=== PATIENT | female | born 1965 | race Caucasian/White ===

== ENCOUNTER 2018-02-08 12:40 | Emergency (ER) | payer OTHER ==
[~2018-02-08] VITALS: Ht 172.7 cm; Wt 151.5 kg
[~2018-02-08 12:40] MED LIST: AMLO5 PO; AMOX500 PO; ASPI81CH PO; Advil200 M1 PO; CALCAVITD PO; CARV6.25 PO; CEPH500 PO; CHOL10002 PO; CIPR500 PO; CONEST.3 PO; CONEST.625 PO; CRUTCH3 USE; CYCL10 PO; Cipro500 MG PO; DOCU100 PO; FURO20 PO; Flagyl500 MG PO; HYDACE5; HYDACE5 PO; HYDACE7.5 PO; HYDR1TAB94 PO; HYOS.125 SL; IBUP600 PO; LISI20; LISI20 PO; LISI5 PO; LISINOPRIL PO; METCAR500 PO; METR500 PO; Miralax17 GM PO; NAPR500 PO; NAPR550 PO; NO HOME MEDS; Norco 5-325 Ta1 EACH PO; ONDA4 PO; ONDA8 PO; OXYACE5T PO; PAIN MED; PENVK500 PO; PROACE100 PO; PROC10 PO; PROM25 PO; Prilosec20 MG PO; RXCYCL10 PO; RXHYDACE PO; RXNAPNA550 PO; TRAM50 PO; VIIBRYD20 MG PO; VITAMIN D PO; ZESTORETIC 20-121 E1 PO; ZESTORETIC 20-121 EA; ZESTORETIC 20-121 EA PO; ZESTORETIC 20-251 EA; Zestril30 MG PO; [UNRECOGNIZED DRUG - REMARK]; water pill
[2018-02-08 13:40] LABS: BASOPHILS ABSOLUTE AUTO 0.02 K/mm3 (0.00-0.23); BASOPHILS PERCENT AUTO 0 % (0-2); EOSINOPHILS ABSOLUTE AUTO 0.23 K/mm3 (0.00-0.68); EOSINOPHILS PERCENT AUTO 2 % (0-6); Hematocrit 41.3 % (33.0-51.0); Hemoglobin 13.5 g/dL (11.5-16.0); IMMATURE GRAN ABSOLUTE AUTO 0.04 K/mm3 (0.00-0.10); IMMATURE GRAN PERCENT AUTO 0 % (0-1); LYMPHOCYTES ABSOLUTE AUTO 2.38 K/mm3 (0.84-5.20); LYMPHOCYTES PERCENT AUTO 18 % (21-46); MONOCYTES ABSOLUTE AUTO 0.74 K/mm3 (0.16-1.47); MONOCYTES PERCENT AUTO 6 % (4-13); Mean Corpuscular HGB 28.8 pg (26.0-34.0); Mean Corpuscular HGB Conc 32.7 g/dL (31.5-36.5); Mean Corpuscular Volume 88 fL (80-100); Mean Platelet Volume 10.2 fL (9.1-12.4); NEUTROPHILS PERCENT AUTO 74 % (41-73); Platelet Count 251 K/mm3 (150-400); RDW Coefficient Variation 13.6 % (11.7-14.2); Red Blood Cell Count 4.68 M/mm3 (3.80-5.20); White Blood Cell Count 13.31 K/mm3 (4.00-11.30)
[2018-02-08 14:01] LABS: Albumin, Blood 3.5 g/dL (3.4-5.0); Albumin/Globulin Ratio 0.7 (0.8-1.8); Bilirubin, Total 0.4 mg/dL (0.1-1.0); Calcium, Blood 8.9 mg/dL (8.5-10.1); Creatinine, Blood 1.23 mg/dL (0.40-1.00); Potassium, Blood 3.6 mmol/L (3.5-5.5); Total Protein, Blood 8.5 g/dL (6.4-8.2)
[2018-02-08 14:28] LABS: Source, Urine Voided
[2018-02-08 14:31] LABS: Appearance, Urine Clear (Clear); Bilirubin, Urine Neg (Neg); Blood, Urine 1+ (Neg); Color, Urine Yellow (P-Yellow); Glucose Qualitative, Urine Neg (Neg); Ketones, Urine Neg (Neg); Leukocyte Esterase, Urine Neg (Neg); Nitrite, Urine Neg (Neg); Protein, Urine Neg (Neg); Specific Gravity, Urine 1.015 (1.003-1.022); Urobilinogen, Urine NORM (Normal)
[2018-02-08] MEDS ORDERED: IRON 100 PLUS1 EACH PO (14:44)
[2018-02-08] MEDS ORDERED: Vitamin C100 M1 PO (14:44)
[2018-02-08] MEDS ORDERED: CALCA400CH PO (14:45)
[2018-02-08 14:56] LABS: Bacteria Few /hpf; Red Blood Cells, Urine Not Seen /hpf (0-2); Squamous Epithelial Cells Few /hpf (Few); White Blood Cells, Urine Not Seen /hpf (0-5)
[2018-02-08] MEDS ORDERED: Cipro500 MG PO (16:30)
[2018-02-08] MEDS ORDERED: Flagyl500 MG PO (16:30)
== END 2018-02-08 17:01 | disposition home or self-care (01) ==
LOC: ER 12:40
PROVIDERS: Emergency Medicine
DX: K57.32 Diverticulitis of large intestine without perforation or abscess without bleeding (principal); I10 Essential (primary) hypertension; Z79.899 Other long term (current) drug therapy; Z79.82 Long term (current) use of aspirin
CPT/HCPCS: 36415; 74176; 80053; 81001; 83690; 85025; 87077; 87086; 87186; 93005; 93010; 96361; 96374; 96375; 99284; J1885; J3010; J7030

== ENCOUNTER → 2020-05-16 | Outpatient (CLI) | payer OTHER ==
[~2020-05-16] MED LIST changes: +CALCA400CH PO; +CALCIUM PO; +FURO40 PO; +IRON 100 PLUS1 EACH PO; +IRON PO; +POTA10T PO; +SALONPAS TOP; +VIBRYD PO; +Vitamin C100 M1 PO; +Vitamin D2000 UNIT PO; +Voltaren100 GM TOP
[2020-05-16 18:31] LABS: Creatinine Urine 77.6 mg/dL (27.00-270.00); Protein, Urine Quantitative 7.2 mg/dL (0.0-11.9)
[2020-05-16 18:34] LABS: Microalbumin, Urine Quant. 5.99 mg/L (0.000-20.000)
== END | disposition home or self-care (01) ==
LOC: LAB 10:30 → LAB SHORT 10:30 → EDSTATUS 05-15 08:45 → LAB FUT 05-15 08:45
PROVIDERS: Internal Medicine Nephrology
DX: N18.3 Chronic kidney disease, stage 3 (moderate) (principal); D63.1 Anemia in chronic kidney disease; R80.9 Proteinuria, unspecified
CPT/HCPCS: 81050; 82043; 82570; 84156

== ENCOUNTER 2020-05-20 19:20 | Emergency (ER) | payer OTHER ==
[~2020-05-20] VITALS: Ht 172.7 cm; Wt 142.4 kg
[2020-05-20] MEDS ORDERED: XARELTO20 MG PO (23:09)
[2020-05-20 23:13] LABS: BASOPHILS ABSOLUTE AUTO 0.02 K/mm3 (0.00-0.23); BASOPHILS PERCENT AUTO 0 % (0-2); EOSINOPHILS ABSOLUTE AUTO 0.33 K/mm3 (0.00-0.68); EOSINOPHILS PERCENT AUTO 3 % (0-6); Hematocrit 40.7 % (33.0-51.0); Hemoglobin 12.7 g/dL (11.5-16.0); IMMATURE GRAN ABSOLUTE AUTO 0.02 K/mm3 (0.00-0.10); IMMATURE GRAN PERCENT AUTO 0 % (0-1); LYMPHOCYTES ABSOLUTE AUTO 2.93 K/mm3 (0.84-5.20); LYMPHOCYTES PERCENT AUTO 28 % (21-46); MONOCYTES ABSOLUTE AUTO 0.65 K/mm3 (0.16-1.47); MONOCYTES PERCENT AUTO 6 % (4-13); Mean Corpuscular HGB 28.7 pg (26.0-34.0); Mean Corpuscular HGB Conc 31.2 g/dL (31.5-36.5); Mean Corpuscular Volume 92 fL (80-100); Mean Platelet Volume 10.5 fL (9.1-12.4); NEUTROPHILS ABSOLUTE AUTO 6.38 K/mm3 (1.96-9.15); NEUTROPHILS PERCENT AUTO 62 % (41-73); Platelet Count 237 K/mm3 (150-400); RDW Coefficient Variation 14.4 % (11.7-14.2); RDW Standard Deviation 48.8 fL (35.1-46.3); Red Blood Cell Count 4.43 M/mm3 (3.80-5.20); White Blood Cell Count 10.33 K/mm3 (4.00-11.30)
[2020-05-20 23:30] LABS: Albumin, Blood 3.7 g/dL (3.4-5.0); Albumin/Globulin Ratio 0.8 (0.8-1.8); Bilirubin, Total 0.2 mg/dL (0.1-1.0); Bun/Creatinine Ratio 23.3 (12.0-20.0); Calcium, Blood 8.8 mg/dL (8.5-10.1); Creatinine, Blood 1.2 mg/dL (0.40-1.00); Globulin, Blood 4.7 g/dL (2.2-4.0); Potassium, Blood 3.6 mmol/L (3.5-5.5); Total Protein, Blood 8.4 g/dL (6.4-8.2)
== END 2020-05-20 23:56 | disposition home or self-care (01) ==
LOC: ER 19:20
PROVIDERS: Emergency Medicine
DX: I82.811 Embolism and thrombosis of superficial veins of right lower extremity (principal); I10 Essential (primary) hypertension; Z79.899 Other long term (current) drug therapy
CPT/HCPCS: 80053; 85025; 93971; 99284-25; A9270; A9270-GY

== ENCOUNTER → 2021-06-29 | Outpatient (CLI) | payer OTHER ==
[~2021-06-29] MED LIST changes: +XARELTO1 EAC1 PO; +XARELTO20 MG PO
[2021-06-29 12:34] LABS: BASOPHILS ABSOLUTE AUTO 0.02 K/mm3 (0.00-0.23); BASOPHILS PERCENT AUTO 0 % (0-2); EOSINOPHILS ABSOLUTE AUTO 0.71 K/mm3 (0.00-0.68); EOSINOPHILS PERCENT AUTO 6 % (0-6); Hematocrit 40.7 % (33.0-51.0); IMMATURE GRAN ABSOLUTE AUTO 0.04 K/mm3 (0.00-0.10); IMMATURE GRAN PERCENT AUTO 0 % (0-1); LYMPHOCYTES ABSOLUTE AUTO 2.11 K/mm3 (0.84-5.20); LYMPHOCYTES PERCENT AUTO 16 % (21-46); MONOCYTES ABSOLUTE AUTO 0.87 K/mm3 (0.16-1.47); MONOCYTES PERCENT AUTO 7 % (4-13); Mean Corpuscular HGB 28.6 pg (26.0-34.0); Mean Corpuscular HGB Conc 31.9 g/dL (31.5-36.5); Mean Corpuscular Volume 90 fL (80-100); Mean Platelet Volume 10.6 fL (9.1-12.4); NEUTROPHILS ABSOLUTE AUTO 9.15 K/mm3 (1.96-9.15); NEUTROPHILS PERCENT AUTO 71 % (41-73); Platelet Count 246 K/mm3 (150-400); RDW Coefficient Variation 14.8 % (11.7-14.2); RDW Standard Deviation 47.6 fL (35.1-46.3); Red Blood Cell Count 4.54 M/mm3 (3.80-5.20)
[2021-06-29 12:44] LABS: Albumin, Blood 3.6 g/dL (3.4-5.0); Albumin/Globulin Ratio 0.8 (0.8-1.8); Bilirubin, Total 0.3 mg/dL (0.1-1.0); Creatinine, Blood 1.32 mg/dL (0.40-1.00); Globulin, Blood 4.8 g/dL (2.2-4.0); Potassium, Blood 3.8 mmol/L (3.5-5.5); Total Protein, Blood 8.4 g/dL (6.4-8.2)
== END | disposition home or self-care (01) ==
LOC: LAB SHORT 12:26
PROVIDERS: Physician Assistant Surgical
DX: R10.13 Epigastric pain (principal)
CPT/HCPCS: 80053; 83690; 85025

== ENCOUNTER → 2021-08-13 | Outpatient (CLI) | payer OTHER ==
[2021-08-13 12:11] LABS: BASOPHILS ABSOLUTE AUTO 0.03 K/mm3 (0.00-0.23); BASOPHILS PERCENT AUTO 0 % (0-2); EOSINOPHILS ABSOLUTE AUTO 0.21 K/mm3 (0.00-0.68); EOSINOPHILS PERCENT AUTO 1 % (0-6); Hematocrit 40.3 % (33.0-51.0); Hemoglobin 12.9 g/dL (11.5-16.0); IMMATURE GRAN ABSOLUTE AUTO 0.05 K/mm3 (0.00-0.10); IMMATURE GRAN PERCENT AUTO 0 % (0-1); LYMPHOCYTES ABSOLUTE AUTO 2.38 K/mm3 (0.84-5.20); LYMPHOCYTES PERCENT AUTO 16 % (21-46); MONOCYTES ABSOLUTE AUTO 1.07 K/mm3 (0.16-1.47); MONOCYTES PERCENT AUTO 7 % (4-13); Mean Corpuscular Volume 91 fL (80-100); NEUTROPHILS ABSOLUTE AUTO 11.41 K/mm3 (1.96-9.15); NEUTROPHILS PERCENT AUTO 75 % (41-73); Platelet Count 280 K/mm3 (150-400); RDW Coefficient Variation 14.6 % (11.7-14.2); RDW Standard Deviation 48.7 fL (35.1-46.3); Red Blood Cell Count 4.45 M/mm3 (3.80-5.20); White Blood Cell Count 15.15 K/mm3 (4.00-11.30)
[2021-08-13 12:31] LABS: Albumin, Blood 3.9 g/dL (3.4-5.0); Albumin/Globulin Ratio 0.8 (0.8-1.8); Bilirubin, Total 0.6 mg/dL (0.1-1.0); Bun/Creatinine Ratio 13.7 (12.0-20.0); Calcium, Blood 8.9 mg/dL (8.5-10.1); Creatinine, Blood 1.24 mg/dL (0.40-1.00); Globulin, Blood 4.9 g/dL (2.2-4.0); Potassium, Blood 3.7 mmol/L (3.5-5.5); Total Protein, Blood 8.8 g/dL (6.4-8.2)
== END | disposition home or self-care (01) ==
LOC: LAB SHORT 12:07 → LAB 12:07
PROVIDERS: Physician Assistant Medical
DX: R10.9 Unspecified abdominal pain (principal)
CPT/HCPCS: 80053; 85025

== ENCOUNTER 2022-04-16 14:09 | Emergency (ER) | payer OTHER ==
[~2022-04-16] VITALS: Ht 172.7 cm; Wt 138.8 kg
[2022-04-16 14:45] LABS: BASOPHILS ABSOLUTE AUTO 0.04 K/mm3 (0.00-0.23); BASOPHILS PERCENT AUTO 0 % (0-2); EOSINOPHILS ABSOLUTE AUTO 0.14 K/mm3 (0.00-0.68); EOSINOPHILS PERCENT AUTO 1 % (0-6); Hematocrit 39.4 % (33.0-51.0); Hemoglobin 12.5 g/dL (11.5-16.0); IMMATURE GRAN ABSOLUTE AUTO 0.18 K/mm3 (0.00-0.10); IMMATURE GRAN PERCENT AUTO 1 % (0-1); LYMPHOCYTES ABSOLUTE AUTO 0.69 K/mm3 (0.84-5.20); LYMPHOCYTES PERCENT AUTO 4 % (21-46); MONOCYTES ABSOLUTE AUTO 0.76 K/mm3 (0.16-1.47); MONOCYTES PERCENT AUTO 4 % (4-13); Mean Corpuscular HGB 28.3 pg (26.0-34.0); Mean Corpuscular HGB Conc 31.7 g/dL (31.5-36.5); Mean Corpuscular Volume 89 fL (80-100); Mean Platelet Volume 10.8 fL (9.1-12.4); NEUTROPHILS ABSOLUTE AUTO 17.56 K/mm3 (1.96-9.15); NEUTROPHILS PERCENT AUTO 91 % (41-73); Platelet Count 226 K/mm3 (150-400); RDW Coefficient Variation 14.7 % (11.7-14.2); RDW Standard Deviation 47.8 fL (35.1-46.3); Red Blood Cell Count 4.42 M/mm3 (3.80-5.20); White Blood Cell Count 19.37 K/mm3 (4.00-11.30)
[2022-04-16 14:49] LABS: Source, Urine Clean Catch
[2022-04-16 14:55] LABS: Appearance, Urine Clear (Clear); Bilirubin, Urine Neg (Neg); Blood, Urine 3+ (Neg); Color, Urine Yellow (P-Yellow); Glucose Qualitative, Urine Neg (Neg); Ketones, Urine 1+ (Neg); Leukocyte Esterase, Urine Neg (Neg); Nitrite, Urine Neg (Neg); Protein, Urine 1+ (Neg); Urobilinogen, Urine NORM (Normal)
[2022-04-16 15:02] LABS: Bacteria Few /hpf; Squamous Epithelial Cells Few /hpf (Few); White Blood Cells, Urine 0-2 /hpf (0-5)
[2022-04-16 15:07] LABS: Albumin, Blood 3.4 g/dL (3.4-5.0); Albumin/Globulin Ratio 0.8 (0.8-1.8); Bilirubin, Total 0.4 mg/dL (0.1-1.0); Bun/Creatinine Ratio 16.9 (12.0-20.0); Calcium, Blood 8.6 mg/dL (8.5-10.1); Creatinine, Blood 1.24 mg/dL (0.40-1.00); Globulin, Blood 4.5 g/dL (2.2-4.0); Potassium, Blood 3.2 mmol/L (3.5-5.5); Total Protein, Blood 7.9 g/dL (6.4-8.2)
== END 2022-04-16 19:22 | disposition home or self-care (01) ==
LOC: ER 14:09
PROVIDERS: Physician Assistant
DX: U07.1 COVID-19 (principal); I10 Essential (primary) hypertension; Z79.899 Other long term (current) drug therapy; Z79.01 Long term (current) use of anticoagulants; Z28.310 Unvaccinated for COVID-19
CPT/HCPCS: 36415; 71045; 80053; 81001; 83605; 85025; 93005; 93010; A9270; J0692; J1885; J3370; J7030; J7050; P9612

== ENCOUNTER 2022-05-03 08:40 | Emergency (ER) | payer OTHER ==
[~2022-05-03] VITALS: Ht 172.7 cm; Wt 138.8 kg
[2022-05-03] MEDS ORDERED: CEPH500 PO (11:33)
[2022-05-03] MEDS ORDERED: Bactrim Ds Tab1 EACH PO (11:33)
== END 2022-05-03 11:43 | disposition home or self-care (01) ==
LOC: ER 08:40
DX: L02.416 Cutaneous abscess of left lower limb (principal); L02.415 Cutaneous abscess of right lower limb; L03.116 Cellulitis of left lower limb; L03.115 Cellulitis of right lower limb; I10 Essential (primary) hypertension
CPT/HCPCS: 99282

== ENCOUNTER 2022-06-03 02:06 | Day surgery (SDC) | payer OTHER ==
[~2022-06-03 02:06] MED LIST changes: +Bactrim Ds Tab1 EACH PO
== END 2022-06-03 23:29 | disposition home or self-care (01) ==
LOC: WOUND 02:06
DX: L03.119 Cellulitis of unspecified part of limb (principal); I89.0 Lymphedema, not elsewhere classified; I87.2 Venous insufficiency (chronic) (peripheral)

== ENCOUNTER 2022-06-10 02:42 | Day surgery (SDC) | payer OTHER | END 2022-06-10 23:19 | disposition home or self-care (01) | LOC: WOUND | DX: I89.0 Lymphedema, not elsewhere classified (principal); L03.119 Cellulitis of unspecified part of limb; I87.2 Venous insufficiency (chronic) (peripheral) | CPT/HCPCS: G0463 ==

== ENCOUNTER 2023-01-01 10:19 | Emergency (ER) | payer OTHER ==
[~2023-01-01] VITALS: Ht 167.6 cm; Wt 144.2 kg
[2023-01-01] MEDS ORDERED: XARELTO15 M1 PO (11:01)
[2023-01-01 11:07] LABS: BASOPHILS ABSOLUTE AUTO 0.02 K/mm3 (0.00-0.23); BASOPHILS PERCENT AUTO 0 % (0-2); EOSINOPHILS ABSOLUTE AUTO 0.23 K/mm3 (0.00-0.68); EOSINOPHILS PERCENT AUTO 2 % (0-6); Hematocrit 33.5 % (33.0-51.0); Hemoglobin 10.4 g/dL (11.5-16.0); IMMATURE GRAN ABSOLUTE AUTO 0.02 K/mm3 (0.00-0.10); IMMATURE GRAN PERCENT AUTO 0 % (0-1); LYMPHOCYTES ABSOLUTE AUTO 2.62 K/mm3 (0.84-5.20); LYMPHOCYTES PERCENT AUTO 24 % (21-46); MONOCYTES ABSOLUTE AUTO 0.79 K/mm3 (0.16-1.47); MONOCYTES PERCENT AUTO 7 % (4-13); Mean Corpuscular HGB 29.4 pg (26.0-34.0); Mean Corpuscular Volume 95 fL (80-100); NEUTROPHILS ABSOLUTE AUTO 7.25 K/mm3 (1.96-9.15); NEUTROPHILS PERCENT AUTO 66 % (41-73); Platelet Count 215 K/mm3 (150-400); RDW Standard Deviation 48.7 fL (35.1-46.3); Red Blood Cell Count 3.54 M/mm3 (3.80-5.20); White Blood Cell Count 10.93 K/mm3 (4.00-11.30)
[2023-01-01] MEDS ORDERED: VITAMIN B125000 MC1 (11:15)
[2023-01-01] MEDS ORDERED: GABA100 PO (11:17)
[2023-01-01] MEDS ORDERED: TOPI15C (11:17)
[2023-01-01] MEDS ORDERED: IRON18 MG PO (11:18)
[2023-01-01] MEDS ORDERED: PRAMIPEXOLE D0.25 M1 PO (11:18)
[2023-01-01] MEDS ORDERED: SUMA25 (11:18)
[2023-01-01] MEDS ORDERED: Vitamin C100 M1 PO (11:19)
[2023-01-01 11:41] LABS: Albumin, Blood 3.3 g/dL (3.4-5.0); Albumin/Globulin Ratio 0.8 (0.8-1.8); Bilirubin, Total 0.5 mg/dL (0.1-1.0); Calcium, Blood 8.5 mg/dL (8.5-10.1); Potassium, Blood 4.3 mmol/L (3.5-5.5); Total Protein, Blood 7.3 g/dL (6.4-8.2)
[2023-01-01 14:15] VITALS: BP 114/89
== END 2023-01-01 14:33 | disposition home or self-care (01) ==
LOC: ER 10:19
PROVIDERS: Physician Assistant
DX: K92.0 Hematemesis (principal); K92.1 Melena; D62 Acute posthemorrhagic anemia; T45.515A Adverse effect of anticoagulants, initial encounter; I10 Essential (primary) hypertension; Z79.01 Long term (current) use of anticoagulants; Z79.899 Other long term (current) drug therapy; Z86.718 Personal history of other venous thrombosis and embolism
CPT/HCPCS: 80053; 83690; 85025; C9113; J2270; J2405

== ENCOUNTER 2023-05-02 00:34 | Day surgery (SDC) | payer OTHER ==
[~2023-05-02 00:34] MED LIST changes: +GABA100 PO; +IRON18 MG PO; +PRAMIPEXOLE D0.25 M1 PO; +SUMA25; +TOPI15C; +VITAMIN B125000 MC1; +XARELTO15 M1 PO
== END 2023-05-02 22:50 | disposition home or self-care (01) ==
LOC: WOUND 00:34
DX: L03.115 Cellulitis of right lower limb (principal); L03.116 Cellulitis of left lower limb; I87.313 Chronic venous hypertension (idiopathic) with ulcer of bilateral lower extremity
CPT/HCPCS: G0463

== ENCOUNTER 2023-05-05 01:45 | Day surgery (SDC) | payer OTHER | END 2023-05-05 23:04 | disposition home or self-care (01) | LOC: WOUND 01:45 | DX: L03.115 Cellulitis of right lower limb (principal) | CPT/HCPCS: G0463 ==

== ENCOUNTER 2023-05-08 02:16 | Day surgery (SDC) | payer OTHER | END 2023-05-08 22:41 | disposition home or self-care (01) | LOC: WOUND 02:16 | DX: L03.115 Cellulitis of right lower limb (principal) ==

== ENCOUNTER 2023-05-21 01:59 | Day surgery (SDC) | payer OTHER | END 2023-05-22 | disposition home or self-care (01) | LOC: WOUND 01:59 | DX: L03.115 Cellulitis of right lower limb (principal); L03.116 Cellulitis of left lower limb; I87.313 Chronic venous hypertension (idiopathic) with ulcer of bilateral lower extremity; Z59.10 Inadequate housing, unspecified ==

== ENCOUNTER 2023-05-23 00:36 | Day surgery (SDC) | payer OTHER | END 2023-05-23 22:50 | disposition home or self-care (01) | LOC: WOUND 00:36 | DX: I87.313 Chronic venous hypertension (idiopathic) with ulcer of bilateral lower extremity (principal); L03.115 Cellulitis of right lower limb; L03.116 Cellulitis of left lower limb; Z59.10 Inadequate housing, unspecified | CPT/HCPCS: G0463 ==

== ENCOUNTER 2023-05-26 00:08 | Day surgery (SDC) | payer OTHER | END 2023-05-26 23:14 | disposition home or self-care (01) | LOC: WOUND 00:08 | DX: L03.115 Cellulitis of right lower limb (principal); L03.116 Cellulitis of left lower limb; Z59.10 Inadequate housing, unspecified; I87.313 Chronic venous hypertension (idiopathic) with ulcer of bilateral lower extremity | CPT/HCPCS: G0463 ==

== ENCOUNTER 2023-05-28 02:35 | Day surgery (SDC) | payer OTHER | END 2023-05-28 23:31 | disposition home or self-care (01) | LOC: WOUND 02:35 | DX: L03.115 Cellulitis of right lower limb (principal); L97.822 Non-pressure chronic ulcer of other part of left lower leg with fat layer exposed; L97.819 Non-pressure chronic ulcer of other part of right lower leg with unspecified severity; L03.116 Cellulitis of left lower limb; I87.313 Chronic venous hypertension (idiopathic) with ulcer of bilateral lower extremity; Z59.10 Inadequate housing, unspecified | CPT/HCPCS: G0463 ==

== ENCOUNTER 2023-06-04 05:00 | Day surgery (SDC) | payer OTHER | END 2023-06-04 23:12 | disposition home or self-care (01) | LOC: WOUND 05:00 | DX: I87.313 Chronic venous hypertension (idiopathic) with ulcer of bilateral lower extremity (principal); L03.115 Cellulitis of right lower limb; L03.116 Cellulitis of left lower limb; L03.119 Cellulitis of unspecified part of limb; Z59.10 Inadequate housing, unspecified | CPT/HCPCS: G0463 ==

== ENCOUNTER 2023-06-11 02:29 | Day surgery (SDC) | payer OTHER | END 2023-06-11 23:00 | disposition home or self-care (01) | LOC: WOUND 02:29 | DX: L03.115 Cellulitis of right lower limb (principal); L03.116 Cellulitis of left lower limb; I89.0 Lymphedema, not elsewhere classified; I87.313 Chronic venous hypertension (idiopathic) with ulcer of bilateral lower extremity; I73.9 Peripheral vascular disease, unspecified; Z59.10 Inadequate housing, unspecified | CPT/HCPCS: A9270; G0463 ==

== ENCOUNTER 2023-06-18 04:57 | Day surgery (SDC) | payer OTHER | END 2023-06-18 23:32 | disposition home or self-care (01) | LOC: WOUND 04:57 | DX: L03.115 Cellulitis of right lower limb (principal); L03.116 Cellulitis of left lower limb; I89.0 Lymphedema, not elsewhere classified; I87.313 Chronic venous hypertension (idiopathic) with ulcer of bilateral lower extremity; I73.9 Peripheral vascular disease, unspecified | CPT/HCPCS: A9270; G0463 ==

== ENCOUNTER 2023-06-25 01:53 | Day surgery (SDC) | payer OTHER | END 2023-06-25 22:56 | disposition home or self-care (01) | LOC: WOUND 01:53 | DX: L03.116 Cellulitis of left lower limb (principal); I89.0 Lymphedema, not elsewhere classified; L03.115 Cellulitis of right lower limb; I87.313 Chronic venous hypertension (idiopathic) with ulcer of bilateral lower extremity; I73.9 Peripheral vascular disease, unspecified | CPT/HCPCS: A9270; G0463 ==

== ENCOUNTER 2023-07-02 06:06 | Day surgery (SDC) | payer OTHER | END 2023-07-02 23:05 | disposition home or self-care (01) | LOC: WOUND 06:06 | DX: Z09 Encounter for follow-up examination after completed treatment for conditions other than malignant neoplasm (principal); I73.9 Peripheral vascular disease, unspecified | CPT/HCPCS: G0463 ==

== ENCOUNTER 2023-07-03 10:13 | Emergency (ER) | payer OTHER ==
[~2023-07-03] VITALS: Ht 167.6 cm; Wt 143.3 kg
[2023-07-03 11:10] LABS: BASOPHILS ABSOLUTE AUTO 0.01 K/mm3 (0.00-0.23); BASOPHILS PERCENT AUTO 0 % (0-2); EOSINOPHILS ABSOLUTE AUTO 0.19 K/mm3 (0.00-0.68); EOSINOPHILS PERCENT AUTO 2 % (0-6); Hematocrit 39.6 % (33.0-51.0); Hemoglobin 12.8 g/dL (11.5-16.0); IMMATURE GRAN ABSOLUTE AUTO 0.02 K/mm3 (0.00-0.10); IMMATURE GRAN PERCENT AUTO 0 % (0-1); LYMPHOCYTES ABSOLUTE AUTO 0.78 K/mm3 (0.84-5.20); LYMPHOCYTES PERCENT AUTO 8 % (21-46); MONOCYTES ABSOLUTE AUTO 0.41 K/mm3 (0.16-1.47); MONOCYTES PERCENT AUTO 4 % (4-13); Mean Corpuscular HGB 29.8 pg (26.0-34.0); Mean Corpuscular HGB Conc 32.3 g/dL (31.5-36.5); Mean Corpuscular Volume 92 fL (80-100); Mean Platelet Volume 10.7 fL (9.1-12.4); NEUTROPHILS ABSOLUTE AUTO 7.84 K/mm3 (1.96-9.15); NEUTROPHILS PERCENT AUTO 85 % (41-73); Platelet Count 212 K/mm3 (150-400); RDW Coefficient Variation 14.6 % (11.7-14.2); RDW Standard Deviation 49.1 fL (35.1-46.3); White Blood Cell Count 9.25 K/mm3 (4.00-11.30)
[2023-07-03 11:29] LABS: Albumin, Blood 3.7 g/dL (3.4-5.0); Albumin/Globulin Ratio 0.8 (0.8-1.8); Bilirubin, Total 0.3 mg/dL (0.1-1.0); Bun/Creatinine Ratio 17.3 (12.0-20.0); Calcium, Blood 8.8 mg/dL (8.5-10.1); Creatinine, Blood 1.33 mg/dL (0.40-1.00); Globulin, Blood 4.8 g/dL (2.2-4.0); Magnesium, Blood 2.1 mg/dL (1.6-2.4); Potassium, Blood 4.1 mmol/L (3.5-5.5); Total Protein, Blood 8.5 g/dL (6.4-8.2)
[2023-07-03 15:11] VITALS: BP 174/99
== END 2023-07-03 15:17 | disposition home or self-care (01) ==
LOC: ER 10:13
PROVIDERS: Student in an Organized Health Care Education/Training Program
DX: R07.81 Pleurodynia (principal); Z79.899 Other long term (current) drug therapy; I10 Essential (primary) hypertension; M19.90 Unspecified osteoarthritis, unspecified site; G43.909 Migraine, unspecified, not intractable, without status migrainosus
CPT/HCPCS: 71046; 71275; 80053; 83735; 84484; 85025; 93005; 93010; 96374-59; 99285-25; A9270; J2270; Q9967

== ENCOUNTER 2023-08-25 04:31 | Day surgery (SDC) | payer OTHER | END 2023-08-25 22:45 | disposition home or self-care (01) | LOC: WOUND 04:31 | DX: I87.313 Chronic venous hypertension (idiopathic) with ulcer of bilateral lower extremity (principal); Z59.10 Inadequate housing, unspecified; I73.9 Peripheral vascular disease, unspecified | CPT/HCPCS: G0463 ==

== ENCOUNTER 2023-09-01 03:27 | Day surgery (SDC) | payer OTHER | END 2023-09-01 23:19 | disposition home or self-care (01) | LOC: WOUND 03:27 | DX: I89.0 Lymphedema, not elsewhere classified (principal); I87.313 Chronic venous hypertension (idiopathic) with ulcer of bilateral lower extremity; I73.9 Peripheral vascular disease, unspecified; Z59.10 Inadequate housing, unspecified | CPT/HCPCS: G0463 ==

== ENCOUNTER 2023-09-08 03:23 | Day surgery (SDC) | payer OTHER | END 2023-09-08 22:59 | disposition home or self-care (01) | LOC: WOUND 03:23 | DX: I89.0 Lymphedema, not elsewhere classified (principal); I87.313 Chronic venous hypertension (idiopathic) with ulcer of bilateral lower extremity; I73.9 Peripheral vascular disease, unspecified | CPT/HCPCS: G0463 ==

== ENCOUNTER 2023-09-15 02:49 | Day surgery (SDC) | payer OTHER | END 2023-09-16 | disposition home or self-care (01) | LOC: WOUND 02:49 | DX: I89.0 Lymphedema, not elsewhere classified (principal); I87.313 Chronic venous hypertension (idiopathic) with ulcer of bilateral lower extremity; Z59.10 Inadequate housing, unspecified; I73.9 Peripheral vascular disease, unspecified | CPT/HCPCS: G0463 ==

== ENCOUNTER 2023-09-22 02:01 | Day surgery (SDC) | payer OTHER | END 2023-09-22 23:09 | disposition home or self-care (01) | LOC: WOUND 02:01 | DX: I89.0 Lymphedema, not elsewhere classified (principal); I87.313 Chronic venous hypertension (idiopathic) with ulcer of bilateral lower extremity; I73.9 Peripheral vascular disease, unspecified; Z59.10 Inadequate housing, unspecified | CPT/HCPCS: G0463 ==

== ENCOUNTER 2023-09-29 00:11 | Day surgery (SDC) | payer OTHER | END 2023-09-29 23:52 | disposition home or self-care (01) | LOC: WOUND 00:11 | DX: I89.0 Lymphedema, not elsewhere classified (principal); I87.313 Chronic venous hypertension (idiopathic) with ulcer of bilateral lower extremity; Z59.10 Inadequate housing, unspecified; I73.9 Peripheral vascular disease, unspecified | CPT/HCPCS: G0463 ==

== ENCOUNTER 2023-10-06 08:00 | Day surgery (SDC) | payer OTHER | END 2023-10-06 22:48 | disposition home or self-care (01) | LOC: WOUND 08:00 | DX: I89.0 Lymphedema, not elsewhere classified (principal); I87.313 Chronic venous hypertension (idiopathic) with ulcer of bilateral lower extremity; I73.9 Peripheral vascular disease, unspecified; Z59.10 Inadequate housing, unspecified | CPT/HCPCS: G0463 ==

== ENCOUNTER 2023-10-13 08:00 | Day surgery (SDC) | payer OTHER | END 2023-10-14 22:49 | disposition home or self-care (01) | LOC: WOUND 08:00 | DX: I87.313 Chronic venous hypertension (idiopathic) with ulcer of bilateral lower extremity (principal); I89.0 Lymphedema, not elsewhere classified; I73.9 Peripheral vascular disease, unspecified; Z59.10 Inadequate housing, unspecified | CPT/HCPCS: G0463 ==

== ENCOUNTER 2023-10-13 10:39 | Emergency (ER) | payer OTHER ==
[~2023-10-13] VITALS: Ht 167.6 cm; Wt 147.0 kg
[2023-10-13 10:48] VITALS: BP 171/99
== END 2023-10-13 12:25 | disposition home or self-care (01) ==
LOC: ER 10:39
DX: M54.2 Cervicalgia (principal); Z79.899 Other long term (current) drug therapy; I10 Essential (primary) hypertension; G43.909 Migraine, unspecified, not intractable, without status migrainosus; V43.53XA Car driver injured in collision with pick-up truck in traffic accident, initial encounter
CPT/HCPCS: 70450; 72125; 99283-25; L0160

== ENCOUNTER 2023-12-08 05:10 | Day surgery (SDC) | payer OTHER ==
[2023-12-08] MEDS ORDERED: Triamcinolone Acet 0.1% Cream 15 gm ONE (07:41)
== END 2023-12-08 23:10 | disposition home or self-care (01) ==
LOC: WOUND 05:10
DX: I87.313 Chronic venous hypertension (idiopathic) with ulcer of bilateral lower extremity (principal); L97.822 Non-pressure chronic ulcer of other part of left lower leg with fat layer exposed; L97.222 Non-pressure chronic ulcer of left calf with fat layer exposed; I73.9 Peripheral vascular disease, unspecified; M79.671 Pain in right foot; Z59.10 Inadequate housing, unspecified
CPT/HCPCS: A9270; G0463

== ENCOUNTER 2023-12-15 03:55 | Day surgery (SDC) | payer OTHER ==
[2023-12-15] MEDS ORDERED: Triamcinolone Acet 0.1% Cream 15 gm ONE (08:09)
== END 2023-12-15 23:20 | disposition home or self-care (01) ==
LOC: WOUND 03:55
DX: I87.312 Chronic venous hypertension (idiopathic) with ulcer of left lower extremity (principal); L97.222 Non-pressure chronic ulcer of left calf with fat layer exposed; L97.822 Non-pressure chronic ulcer of other part of left lower leg with fat layer exposed; M79.671 Pain in right foot; Z59.10 Inadequate housing, unspecified
CPT/HCPCS: A9270; G0463

== ENCOUNTER 2023-12-24 04:36 | Day surgery (SDC) | payer OTHER | END 2023-12-24 23:22 | disposition home or self-care (01) | LOC: WOUND 04:36 | DX: I87.312 Chronic venous hypertension (idiopathic) with ulcer of left lower extremity (principal); L97.222 Non-pressure chronic ulcer of left calf with fat layer exposed; L97.822 Non-pressure chronic ulcer of other part of left lower leg with fat layer exposed; M79.671 Pain in right foot; Z59.10 Inadequate housing, unspecified | CPT/HCPCS: G0463 ==

== ENCOUNTER 2024-02-06 18:29 | Observation (INO) | payer OTHER ==
[~2024-02-06] VITALS: Ht 180.3 cm; Wt 144.0 kg
[2024-02-06 19:14] LABS: BASOPHILS ABSOLUTE AUTO 0.03 K/mm3 (0.00-0.23); BASOPHILS PERCENT AUTO 0 % (0-2); EOSINOPHILS ABSOLUTE AUTO 0.28 K/mm3 (0.00-0.68); EOSINOPHILS PERCENT AUTO 3 % (0-6); Hematocrit 36.8 % (33.0-51.0); Hemoglobin 11.9 g/dL (11.5-16.0); IMMATURE GRAN ABSOLUTE AUTO 0.02 K/mm3 (0.00-0.10); IMMATURE GRAN PERCENT AUTO 0 % (0-1); LYMPHOCYTES ABSOLUTE AUTO 2.38 K/mm3 (0.84-5.20); LYMPHOCYTES PERCENT AUTO 26 % (21-46); MONOCYTES ABSOLUTE AUTO 0.81 K/mm3 (0.16-1.47); MONOCYTES PERCENT AUTO 9 % (4-13); Mean Corpuscular HGB 29.9 pg (26.0-34.0); Mean Corpuscular HGB Conc 32.3 g/dL (31.5-36.5); Mean Corpuscular Volume 93 fL (80-100); Mean Platelet Volume 10.6 fL (9.1-12.4); NEUTROPHILS ABSOLUTE AUTO 5.73 K/mm3 (1.96-9.15); NEUTROPHILS PERCENT AUTO 62 % (41-73); Platelet Count 252 K/mm3 (150-400); RDW Coefficient Variation 13.5 % (11.7-14.2); RDW Standard Deviation 46.3 fL (35.1-46.3); Red Blood Cell Count 3.98 M/mm3 (3.80-5.20); White Blood Cell Count 9.25 K/mm3 (4.00-11.30)
[2024-02-06 19:30] LABS: Albumin, Blood 3.3 g/dL (3.4-5.0); Albumin/Globulin Ratio 0.8 (0.8-1.8); Bilirubin, Total 0.2 mg/dL (0.1-1.0); Bun/Creatinine Ratio 17.7 (12.0-20.0); Calcium, Blood 8.6 mg/dL (8.5-10.1); Creatinine, Blood 1.3 mg/dL (0.40-1.00); Globulin, Blood 4.4 g/dL (2.2-4.0); Potassium, Blood 4.3 mmol/L (3.5-5.5); Total Protein, Blood 7.7 g/dL (6.4-8.2)
[2024-02-06] MEDS ORDERED: Metoclopramide HCl 5MG / ML 2ML Vial IV ONE (19:55)
[2024-02-06] MEDS ORDERED: DiphenhydrAMINE HCl 50 MG/ML 1ML Vial IV ONE (19:55)
[2024-02-06] MEDS ORDERED: Acetaminophen 500 MG Tab PO ONE (19:55)
[2024-02-06] MEDS ORDERED: Aspirin 81 MG Chew PO ONE (22:00)
[2024-02-07] MEDS ORDERED: Capsaicin 0.025% Cream TOP PRN (01:25)
[2024-02-07] MEDS ORDERED: Melatonin 3 MG Tab PO PRN (01:25)
[2024-02-07] MEDS ORDERED: Pramipexole DI-HCL 0.25 MG Tab PO SCH (02:00)
[2024-02-07 02:06] VITALS: BP 172/94
[2024-02-07] MEDS ORDERED: Acetaminophen 325 MG TABLET PO PRN (02:50)
[2024-02-07 06:16] LABS: BASOPHILS ABSOLUTE AUTO 0.02 K/mm3 (0.00-0.23); BASOPHILS PERCENT AUTO 0 % (0-2); EOSINOPHILS ABSOLUTE AUTO 0.26 K/mm3 (0.00-0.68); EOSINOPHILS PERCENT AUTO 3 % (0-6); Hematocrit 37.7 % (33.0-51.0); Hemoglobin 12.1 g/dL (11.5-16.0); IMMATURE GRAN ABSOLUTE AUTO 0.02 K/mm3 (0.00-0.10); IMMATURE GRAN PERCENT AUTO 0 % (0-1); LYMPHOCYTES ABSOLUTE AUTO 2.13 K/mm3 (0.84-5.20); LYMPHOCYTES PERCENT AUTO 27 % (21-46); MONOCYTES PERCENT AUTO 8 % (4-13); Mean Corpuscular HGB 29.5 pg (26.0-34.0); Mean Corpuscular HGB Conc 32.1 g/dL (31.5-36.5); Mean Corpuscular Volume 92 fL (80-100); Mean Platelet Volume 10.2 fL (9.1-12.4); NEUTROPHILS ABSOLUTE AUTO 4.94 K/mm3 (1.96-9.15); NEUTROPHILS PERCENT AUTO 62 % (41-73); Platelet Count 234 K/mm3 (150-400); RDW Coefficient Variation 13.2 % (11.7-14.2); RDW Standard Deviation 45.2 fL (35.1-46.3); White Blood Cell Count 7.97 K/mm3 (4.00-11.30)
--- NOTE | 2024-02-07 06:23 | NUR ---
Shift Summary Pt admitted from ED for suspected CVA. At home she had L sided facial numbness and L extremity weakness. Her eyes are PERRLA, no facial droop, no slur, no significant cognitive deficits. CT was inconclusive, plan is for pt to get and MRI today. She is AOx4, 1 assist pivot to [facility] [place]. She has compression stalkings on from home for edema and circulation. She has a hx of DVT and takes xeralto which is scheduled today. She has some scabs on her BLE and the skin of her feet is dry and cracking skin. She c/o 3/10 headache, given tylenol per EMAR.
[2024-02-07 06:48] LABS: Anion Gap 8 mmol/L (3-11); Blood Urea Nitrogen 24 mg/dL (8-24); Bun/Creatinine Ratio 18.9 (12.0-20.0); CHOL/HDL RATIO 4.1; CO2, Blood 23 mmol/L (21-32); Calcium, Blood 8.1 mg/dL (8.5-10.1); Chloride, Blood 114 mmol/L (98-108); Cholesterol 128 mg/dL (50-200); Creatinine, Blood 1.27 mg/dL (0.40-1.00); Glomerular Filtration Rate 49 (60-); Glucose, Blood 104 mg/dL (70-99); HDL Cholesterol 31 mg/dL (>39); LDL/HDL RATIO 2.5; Low Density Lipoprotein Chol 78 mg/dL (0-110); Potassium, Blood 3.8 mmol/L (3.5-5.5); Sodium, Blood 141 mmol/L (136-145); Triglycerides 97 mg/dL (30-160); Very Low Density Lipoprot Chol 19 mg/dL (6-32)
[2024-02-07 07:34] VITALS: BP 153/89
[2024-02-07] MEDS ORDERED: Potassium Chloride 10 Meq Tablet SA PO SCH (09:00)
[2024-02-07] MEDS ORDERED: Misc. Tablet PO SCH (09:00)
[2024-02-07] MEDS ORDERED: Aspirin 81 MG Chew PO SCH (09:00)
[2024-02-07] MEDS ORDERED: Lisinopril 20 MG Tab PO SCH (09:00)
[2024-02-07] MEDS ORDERED: Atorvastatin 40 MG Tab PO SCH (09:00)
[2024-02-07] MEDS ORDERED: Rivaroxaban 10 MG Tab PO SCH ×2 (09:00)
[2024-02-07] MEDS ORDERED: Gabapentin 100 MG Cap PO SCH (09:00)
[2024-02-07] MEDS ORDERED: Enoxaparin 40 MG/0.4 ML SYR SC SCH (09:00)
[2024-02-07] MEDS ORDERED: Furosemide 40 MG Tab PO SCH (09:00)
[2024-02-07 15:18] VITALS: BP 160/72
[2024-02-07] MEDS ORDERED: CAPSAICIN60 G1 TOP (15:38)
[2024-02-07] MEDS ORDERED: ASPI81CH PO (15:49)
[2024-02-07] MEDS ORDERED: ATOR80 PO (15:51)
--- NOTE | 2024-02-07 17:08 | NUR ---
PT HAS WORKED WITH PT AND IS AT BASELINE, HAS BEEN DISCHARGED TO HOME, IV REMOVED INTACT, NEW MED FAXED TO [facility], WENT OVER INSTRUCTIONS WITH HER, SHE VERBALIZED UNDERSTANDING. WILL LEAVE VIA WHEELCHAIR WHEN SISTER GETS HERE.
--- NOTE | 2024-02-07 18:01 | NUR ---
PT LEFT VIA WHEELCHAIR WITH ALL HER BELONGINGS.
== END 2024-02-07 19:00 | disposition home or self-care (01) ==
LOC: ER 18:29 → PCU 18:30 → MEDS 02-07 02:00
PROVIDERS: Emergency Medicine; Family Medicine; ADMIT Internal Medicine
DX: I63.9 Cerebral infarction, unspecified (principal); I10 Essential (primary) hypertension; M54.12 Radiculopathy, cervical region; E66.01 Morbid (severe) obesity due to excess calories; G43.909 Migraine, unspecified, not intractable, without status migrainosus; Z79.899 Other long term (current) drug therapy
CPT/HCPCS: 36415; 70450; 80048; 80053; 80061; 83036; 84443; 85025; 93005; 93010; 93306; 93880; 94762; 96374; 96375; 97162; 97530; 99285-25; A9270; G0378; J1200; J2765

== ENCOUNTER 2024-03-04 16:50 | Emergency (ER) | payer OTHER ==
[~2024-03-04] VITALS: Ht 172.7 cm; Wt 124.7 kg
[~2024-03-04 16:50] MED LIST changes: +ATOR80 PO; +CAPSAICIN60 G1 TOP
[2024-03-04 18:24] LABS: Influenza A, PCR NEGATIVE (NEGATIVE); Influenza B, PCR NEGATIVE (NEGATIVE); Resp Syncytial Virus, PCR NEGATIVE (NEGATIVE); SARS-Cov-2 (COVID-19) PCR, MMC NEGATIVE (NEGATIVE)
[2024-03-04 18:32] LABS: BASOPHILS ABSOLUTE AUTO 0.03 K/mm3 (0.00-0.23); BASOPHILS PERCENT AUTO 0 % (0-2); EOSINOPHILS ABSOLUTE AUTO 0.25 K/mm3 (0.00-0.68); EOSINOPHILS PERCENT AUTO 3 % (0-6); Hematocrit 37.9 % (33.0-51.0); Hemoglobin 12.4 g/dL (11.5-16.0); IMMATURE GRAN ABSOLUTE AUTO 0.01 K/mm3 (0.00-0.10); IMMATURE GRAN PERCENT AUTO 0 % (0-1); LYMPHOCYTES ABSOLUTE AUTO 2.39 K/mm3 (0.84-5.20); LYMPHOCYTES PERCENT AUTO 24 % (21-46); MONOCYTES ABSOLUTE AUTO 0.63 K/mm3 (0.16-1.47); MONOCYTES PERCENT AUTO 6 % (4-13); Mean Corpuscular HGB 29.8 pg (26.0-34.0); Mean Corpuscular HGB Conc 32.7 g/dL (31.5-36.5); Mean Corpuscular Volume 91 fL (80-100); Mean Platelet Volume 10.4 fL (9.1-12.4); NEUTROPHILS ABSOLUTE AUTO 6.71 K/mm3 (1.96-9.15); NEUTROPHILS PERCENT AUTO 67 % (41-73); Platelet Count 217 K/mm3 (150-400); RDW Coefficient Variation 13.5 % (11.7-14.2); RDW Standard Deviation 45.1 fL (35.1-46.3); Red Blood Cell Count 4.16 M/mm3 (3.80-5.20); White Blood Cell Count 10.02 K/mm3 (4.00-11.30)
[2024-03-04 18:58] LABS: Albumin, Blood 3.4 g/dL (3.4-5.0); Albumin/Globulin Ratio 0.8 (0.8-1.8); Bilirubin, Total 0.2 mg/dL (0.1-1.0); Bun/Creatinine Ratio 14.8 (12.0-20.0); Calcium, Blood 8.3 mg/dL (8.5-10.1); Creatinine, Blood 1.28 mg/dL (0.40-1.00); Globulin, Blood 4.2 g/dL (2.2-4.0); Potassium, Blood 3.6 mmol/L (3.5-5.5); Total Protein, Blood 7.6 g/dL (6.4-8.2)
[2024-03-04 20:31] VITALS: BP 154/78
== END 2024-03-04 20:34 | disposition home or self-care (01) ==
LOC: ER 16:50
PROVIDERS: Emergency Medicine
DX: R20.2 Paresthesia of skin (principal); R53.1 Weakness; I10 Essential (primary) hypertension; G47.33 Obstructive sleep apnea (adult) (pediatric); Z79.899 Other long term (current) drug therapy; Z79.82 Long term (current) use of aspirin
CPT/HCPCS: 0241U; 70450; 80053; 85025; 93005; 93010; 99285-25

== ENCOUNTER 2024-07-01 08:43 | Emergency (ER) | payer OTHER ==
[~2024-07-01] VITALS: Ht 167.6 cm; Wt 141.1 kg
[2024-07-01] MEDS ORDERED: Ketorolac Tromethamine 15mg Vial IV ONE (10:20)
[2024-07-01] MEDS ORDERED: GUAIFENESIN (10:24)
[2024-07-01] MEDS ORDERED: Tessalon200 MG PO (10:24)
[2024-07-01] MEDS ORDERED: PRED20 PO (10:24)
[2024-07-01 10:43] LABS: BASOPHILS ABSOLUTE AUTO 0.03 K/mm3 (0.00-0.23); BASOPHILS PERCENT AUTO 0 % (0-2); EOSINOPHILS ABSOLUTE AUTO 0.16 K/mm3 (0.00-0.68); EOSINOPHILS PERCENT AUTO 1 % (0-6); Hematocrit 43.3 % (33.0-51.0); Hemoglobin 13.9 g/dL (11.5-16.0); IMMATURE GRAN ABSOLUTE AUTO 0.05 K/mm3 (0.00-0.10); IMMATURE GRAN PERCENT AUTO 0 % (0-1); LYMPHOCYTES ABSOLUTE AUTO 1.81 K/mm3 (0.84-5.20); LYMPHOCYTES PERCENT AUTO 12 % (21-46); MONOCYTES ABSOLUTE AUTO 1.03 K/mm3 (0.16-1.47); MONOCYTES PERCENT AUTO 7 % (4-13); Mean Corpuscular HGB 29.6 pg (26.0-34.0); Mean Corpuscular HGB Conc 32.1 g/dL (31.5-36.5); Mean Corpuscular Volume 92 fL (80-100); NEUTROPHILS ABSOLUTE AUTO 11.93 K/mm3 (1.96-9.15); NEUTROPHILS PERCENT AUTO 79 % (41-73); Platelet Count 276 K/mm3 (150-400); RDW Coefficient Variation 13.7 % (11.7-14.2); RDW Standard Deviation 46.4 fL (35.1-46.3); White Blood Cell Count 15.01 K/mm3 (4.00-11.30)
[2024-07-01 10:46] LABS: Influenza A, PCR NEGATIVE (NEGATIVE); Influenza B, PCR NEGATIVE (NEGATIVE); Resp Syncytial Virus, PCR NEGATIVE (NEGATIVE); SARS-Cov-2 (COVID-19) PCR, MMC NEGATIVE (NEGATIVE)
[2024-07-01 10:59] LABS: Albumin, Blood 3.3 g/dL (3.4-5.0); Albumin/Globulin Ratio 0.8 (0.8-1.8); Bilirubin, Total 0.4 mg/dL (0.1-1.0); Bun/Creatinine Ratio 20.3 (12.0-20.0); Calcium, Blood 8.7 mg/dL (8.5-10.1); Creatinine, Blood 1.48 mg/dL (0.40-1.00); Globulin, Blood 4.4 g/dL (2.2-4.0); Potassium, Blood 3.9 mmol/L (3.5-5.5); Total Protein, Blood 7.7 g/dL (6.4-8.2)
[2024-07-01] MEDS ORDERED: CefTRIAXone Sodium 1,000 MG in NS 100 ML IV ONE (11:40)
[2024-07-01] MEDS ORDERED: CEFD300 PO (12:31)
[2024-07-01 13:30] VITALS: BP 129/80
== END 2024-07-01 13:41 | disposition home or self-care (01) ==
LOC: ER 08:43
PROVIDERS: Physician Assistant
DX: J18.9 Pneumonia, unspecified organism (principal); G43.909 Migraine, unspecified, not intractable, without status migrainosus; I12.9 Hypertensive chronic kidney disease with stage 1 through stage 4 chronic kidney disease, or unspecified chronic kidney disease; N18.30 Chronic kidney disease, stage 3 unspecified; Z86.73 Personal history of transient ischemic attack (TIA), and cerebral infarction without residual deficits; Z86.718 Personal history of other venous thrombosis and embolism; Z79.52 Long term (current) use of systemic steroids; Z79.82 Long term (current) use of aspirin; Z79.01 Long term (current) use of anticoagulants; Z79.899 Other long term (current) drug therapy; Z59.89 Other problems related to housing and economic circumstances
CPT/HCPCS: 0241U; 71046; 80053; 84145; 85025; 93005; 93010; 96365; 96375; 99285-25; J0696; J1885

== ENCOUNTER 2024-10-28 08:51 | Emergency (ER) | payer OTHER ==
[~2024-10-28] VITALS: Ht 167.6 cm; Wt 141.1 kg
[~2024-10-28 08:51] MED LIST changes: +CEFD300 PO; +GUAIFENESIN; +PRED20 PO; +Tessalon200 MG PO
[2024-10-28 08:55] VITALS: BP 136/84
[2024-10-28 09:23] LABS: BASOPHILS ABSOLUTE AUTO 0.02 K/mm3 (0.00-0.23); BASOPHILS PERCENT AUTO 0 % (0-2); EOSINOPHILS ABSOLUTE AUTO 0.22 K/mm3 (0.00-0.68); EOSINOPHILS PERCENT AUTO 2 % (0-6); Hematocrit 36.9 % (33.0-51.0); Hemoglobin 12.1 g/dL (11.5-16.0); IMMATURE GRAN ABSOLUTE AUTO 0.03 K/mm3 (0.00-0.10); IMMATURE GRAN PERCENT AUTO 0 % (0-1); LYMPHOCYTES ABSOLUTE AUTO 1.71 K/mm3 (0.84-5.20); LYMPHOCYTES PERCENT AUTO 17 % (21-46); MONOCYTES ABSOLUTE AUTO 0.65 K/mm3 (0.16-1.47); MONOCYTES PERCENT AUTO 7 % (4-13); Mean Corpuscular HGB 29.2 pg (26.0-34.0); Mean Corpuscular HGB Conc 32.8 g/dL (31.5-36.5); Mean Corpuscular Volume 89 fL (80-100); NEUTROPHILS PERCENT AUTO 74 % (41-73); Platelet Count 274 K/mm3 (150-400); RDW Coefficient Variation 13.3 % (11.7-14.2); RDW Standard Deviation 43.6 fL (35.1-46.3); Red Blood Cell Count 4.15 M/mm3 (3.80-5.20); White Blood Cell Count 10.03 K/mm3 (4.00-11.30)
[2024-10-28] MEDS ORDERED: Ketorolac Tromethamine 30mg Vial IV ONE (09:35)
[2024-10-28] MEDS ORDERED: Ondansetron HCl 2 MG / ML 2ML Vial IV ONE (09:35)
[2024-10-28 09:47] LABS: Source, Urine Voided
[2024-10-28 09:52] LABS: Albumin/Globulin Ratio 0.7 (0.8-1.8); Bilirubin, Total 0.4 mg/dL (0.1-1.0); Calcium, Blood 8.1 mg/dL (8.5-10.1); Creatinine, Blood 1.61 mg/dL (0.40-1.00); Globulin, Blood 4.2 g/dL (2.2-4.0); Potassium, Blood 3.7 mmol/L (3.5-5.5); Total Protein, Blood 7.2 g/dL (6.4-8.2)
[2024-10-28 10:02] LABS: Appearance, Urine Clear (Clear); Bilirubin, Urine Neg (Neg); Blood, Urine 2+ (Neg); Color, Urine Yellow (P-Yellow); Glucose Qualitative, Urine Neg (Neg); Ketones, Urine Neg (Neg); Leukocyte Esterase, Urine Neg (Neg); Nitrite, Urine Neg (Neg); Protein, Urine Neg (Neg); Urobilinogen, Urine NORM (Normal)
[2024-10-28 10:27] LABS: Squamous Epithelial Cells Mod /hpf (Few)
[2024-10-28 10:28] LABS: Amorphous Light (0-Heavy); Bacteria Few /hpf; White Blood Cells, Urine 0-2 /hpf (0-5)
[2024-10-28] MEDS ORDERED: ONDA4ODT MM (10:59)
[2024-10-28] MEDS ORDERED: IBUP800 PO (10:59)
[2024-10-28] MEDS ORDERED: HYDROCODONE-AC1 EA10 PO (10:59)
[2024-11-01] MEDS ORDERED: VITAMIN D350 MC3 PO (07:25)
[2024-11-01] MEDS ORDERED: IRON PO (07:30)
[2024-11-01] MEDS ORDERED: CALCIUM 600-VI1 EAC3 (07:31)
== END 2024-10-28 11:13 | disposition home or self-care (01) ==
LOC: ER 08:51
PROVIDERS: Emergency Medicine
DX: K85.90 Acute pancreatitis without necrosis or infection, unspecified (principal); I12.9 Hypertensive chronic kidney disease with stage 1 through stage 4 chronic kidney disease, or unspecified chronic kidney disease; N18.30 Chronic kidney disease, stage 3 unspecified; G43.909 Migraine, unspecified, not intractable, without status migrainosus; Z86.73 Personal history of transient ischemic attack (TIA), and cerebral infarction without residual deficits; Z90.49 Acquired absence of other specified parts of digestive tract; Z86.718 Personal history of other venous thrombosis and embolism; Z79.82 Long term (current) use of aspirin; Z79.01 Long term (current) use of anticoagulants; Z79.899 Other long term (current) drug therapy
CPT/HCPCS: 74177; 80053; 81001; 83690; 85025; 93005; 93010; 96374-59; 96375; 99285-25; J1885; J2405; Q9967

== ENCOUNTER 2024-11-01 07:03 | Inpatient (IN) | payer OTHER ==
[~2024-11-01] VITALS: Ht 167.6 cm; Wt 141.1 kg
[~2024-11-01 07:03] MED LIST changes: +HYDROCODONE-AC1 EA10 PO; +IBUP800 PO; +ONDA4ODT MM
[2024-11-01] MEDS ORDERED: THERA-D2000 UNIT PO (07:25)
[2024-11-01] MEDS ORDERED: XARELTO20 MG PO (07:28)
[2024-11-01] MEDS ORDERED: ASPI325 PO (07:29)
[2024-11-01] MEDS ORDERED: LISI20 PO (07:29)
[2024-11-01] MEDS ORDERED: TOPI50 PO (07:30)
[2024-11-01] MEDS ORDERED: VILAZODONE HCL20 MG PO (07:30)
[2024-11-01] MEDS ORDERED: FEROSUL325 M1 PO (07:30)
[2024-11-01] MEDS ORDERED: TRAZ50 PO (07:31)
[2024-11-01] MEDS ORDERED: CALCIUM 600-VI1 EAC3 PO (07:31)
[2024-11-01] MEDS ORDERED: Prinivil10 MG PO (07:31)
[2024-11-01] MEDS ORDERED: TIZA4 PO (07:31)
[2024-11-01] MEDS ORDERED: Percocet 5-3251 EACH PO (07:32)
[2024-11-01] MEDS ORDERED: Lactated Ringer's 1,000 ML IV ONE (07:40)
[2024-11-01 07:54] LABS: BASOPHILS ABSOLUTE AUTO 0.01 K/mm3 (0.00-0.23); BASOPHILS PERCENT AUTO 0 % (0-2); EOSINOPHILS ABSOLUTE AUTO 0.22 K/mm3 (0.00-0.68); EOSINOPHILS PERCENT AUTO 2 % (0-6); Hematocrit 39.3 % (33.0-51.0); Hemoglobin 12.6 g/dL (11.5-16.0); IMMATURE GRAN ABSOLUTE AUTO 0.04 K/mm3 (0.00-0.10); IMMATURE GRAN PERCENT AUTO 0 % (0-1); LYMPHOCYTES ABSOLUTE AUTO 1.35 K/mm3 (0.84-5.20); LYMPHOCYTES PERCENT AUTO 11 % (21-46); MONOCYTES ABSOLUTE AUTO 0.67 K/mm3 (0.16-1.47); MONOCYTES PERCENT AUTO 5 % (4-13); Mean Corpuscular HGB Conc 32.1 g/dL (31.5-36.5); Mean Corpuscular Volume 91 fL (80-100); Mean Platelet Volume 10.2 fL (9.1-12.4); NEUTROPHILS ABSOLUTE AUTO 10.07 K/mm3 (1.96-9.15); NEUTROPHILS PERCENT AUTO 82 % (41-73); Platelet Count 317 K/mm3 (150-400); RDW Coefficient Variation 13.3 % (11.7-14.2); RDW Standard Deviation 44.2 fL (35.1-46.3); Red Blood Cell Count 4.34 M/mm3 (3.80-5.20); White Blood Cell Count 12.36 K/mm3 (4.00-11.30)
[2024-11-01 08:06] LABS: Alanine Aminotransfer (ALT/SGP 22 U/L (12-78); Albumin, Blood 3.3 g/dL (3.4-5.0); Albumin/Globulin Ratio 0.7 (0.8-1.8); Alk Phos 84 U/L (50-136); Anion Gap 8 mmol/L (3-11); Aspartate Aminotrans (AST/SGOT 19 U/L (12-37); Bilirubin, Direct <0.1 mg/dL (0.0-0.3); Bilirubin, Indirect Unable to Calculate mg/dL (0.1-0.7); Bilirubin, Total 0.2 mg/dL (0.1-1.0); Blood Urea Nitrogen 30 mg/dL (8-24); Bun/Creatinine Ratio 20.3 (12.0-20.0); CO2, Blood 23 mmol/L (21-32); Calcium, Blood 8.5 mg/dL (8.5-10.1); Chloride, Blood 111 mmol/L (98-108); Creatinine, Blood 1.48 mg/dL (0.40-1.00); Globulin, Blood 4.5 g/dL (2.2-4.0); Glomerular Filtration Rate 41 (60-); Glucose, Blood 137 mg/dL (70-99); Potassium, Blood 4.1 mmol/L (3.5-5.5); Sodium, Blood 138 mmol/L (136-145); Total Protein, Blood 7.8 g/dL (6.4-8.2)
[2024-11-01] MEDS ORDERED: HYDROmorphone HCl/Pf 1MG SYR IV ONE (08:25)
[2024-11-01] MEDS ORDERED: Ondansetron HCl 2 MG / ML 2ML Vial IV ONE (08:25)
[2024-11-01] MEDS ORDERED: Morphine Sulfate 4 MG/1 ML Injection IV ONE (09:45)
[2024-11-01] MEDS ORDERED: FLU VACC TS2024-25(6MOS UP)/PF 45 MCG/0.5 ML SYRINGE IM SCH (10:00)
[2024-11-01] MEDS ORDERED: Magnesium Hydroxide Conc 10 ML UDC PO PRN (10:00)
[2024-11-01] MEDS ORDERED: Ondansetron HCl 2 MG / ML 2ML Vial IV PRN (10:00)
[2024-11-01] MEDS ORDERED: NS 1,000 ML IV SCH (10:00)
[2024-11-01] MEDS ORDERED: Bisacodyl 10 MG Supp PR PRN (10:00)
[2024-11-01] MEDS ORDERED: Metoclopramide HCl 5MG / ML 2ML Vial IV PRN (10:00)
[2024-11-01] MEDS ORDERED: OxyCODONE HCL 5 MG TAB PO PRN ×2 (10:05→22:20)
[2024-11-01] MEDS ORDERED: Morphine Sulfate 4 MG/1 ML Injection IV PRN ×2 (10:05→22:20)
[2024-11-01] MEDS ORDERED: TraZODone HCl 50 MG Tab PO PRN (10:05)
[2024-11-01] MEDS ORDERED: Piperacillin/Tazobactam Sod 4.5 GM in NS 100 ML IV ONE (10:10)
[2024-11-01] MEDS ORDERED: Acetaminophen 500 MG Tab PO SCH (12:00)
[2024-11-01 14:01] VITALS: BP 142/80
--- NOTE | 2024-11-01 14:05 | NUR ---
PATIENT ARRIVED TO MEDICAL FLOOR AT 1400.
[2024-11-01] MEDS ORDERED: TiZANidine HCl 4 MG Tab PO SCH (18:00)
[2024-11-01] MEDS ORDERED: Piperacillin/Tazobactam Sod 4.5 GM in NS 100 ML IV SCH (18:00)
--- NOTE | 2024-11-01 19:08 | NUR ---
[id number] REPORT PATIENT ARRIVED TO FLOOR. MEDICATED C/O EPIGASTRIC PAIN. WORKED WITH PT/OT. MEDS WHOLE c FLUIDS. TOLERATING CLEAR LIQUID DIET. ATTENDS IN PLACE. 1PA c FWW TO [facility] FOR BM. TELE NSR. FLUIDS RUNNING. BED IN LOWEST POSITION. CALL LIGHT WITHIN REACH. ALL ACUTE NEEDS MEDS. REPORT TO ONCOMING NURSE.
[2024-11-01 19:23] VITALS: BP 110/59
[2024-11-01] MEDS ORDERED: Pramipexole DI-HCL 0.25 MG Tab PO SCH (21:00)
[2024-11-01] MEDS ORDERED: Lactobacil 2-S.Thermo-Bifido 1 1 Cap PO SCH (21:00)
[2024-11-01] MEDS ORDERED: Famotidine 20 MG Tab PO SCH (21:00)
[2024-11-02 00:33] VITALS: BP 117/64
[2024-11-02 03:05] VITALS: BP 114/65
--- NOTE | 2024-11-02 05:59 | NUR ---
RN OTOLARYNGOLOGY SUMMARY PT AWAKE SEVERAL TIMES THROUGHOUT THE NIGHT WITH ABDOMINAL PAIN R/T PANCREATITIS. MEDS PER EMAR. PT GIVEN SHOWER. PTS FAMILY TO BRING IN HOME CPAP BUT FOR NOW SHE IS USING 2L O2 AT NIGHT WITH CONTINUOUS BIOX BECAUSE SHE DOESNT WANT TO WEAR A HOSPITAL CPAP. IVF, IV ABX INFUSING PER EMAR. SB-SR ON TELE, 50S-60S. PT UNABLE TO EAT AND DRINK OTHER THAN A FEW SIPS.
[2024-11-02 06:01] LABS: BASOPHILS ABSOLUTE AUTO 0.01 K/mm3 (0.00-0.23); BASOPHILS PERCENT AUTO 0 % (0-2); EOSINOPHILS ABSOLUTE AUTO 0.34 K/mm3 (0.00-0.68); EOSINOPHILS PERCENT AUTO 4 % (0-6); Hematocrit 37.6 % (33.0-51.0); IMMATURE GRAN ABSOLUTE AUTO 0.03 K/mm3 (0.00-0.10); IMMATURE GRAN PERCENT AUTO 0 % (0-1); LYMPHOCYTES ABSOLUTE AUTO 1.76 K/mm3 (0.84-5.20); LYMPHOCYTES PERCENT AUTO 20 % (21-46); MONOCYTES ABSOLUTE AUTO 0.54 K/mm3 (0.16-1.47); MONOCYTES PERCENT AUTO 6 % (4-13); Mean Corpuscular HGB 29.4 pg (26.0-34.0); Mean Corpuscular HGB Conc 31.9 g/dL (31.5-36.5); Mean Corpuscular Volume 92 fL (80-100); Mean Platelet Volume 10.1 fL (9.1-12.4); NEUTROPHILS ABSOLUTE AUTO 6.03 K/mm3 (1.96-9.15); NEUTROPHILS PERCENT AUTO 69 % (41-73); Platelet Count 277 K/mm3 (150-400); RDW Coefficient Variation 13.6 % (11.7-14.2); RDW Standard Deviation 45.4 fL (35.1-46.3); Red Blood Cell Count 4.08 M/mm3 (3.80-5.20); White Blood Cell Count 8.71 K/mm3 (4.00-11.30)
[2024-11-02 06:24] LABS: Albumin, Blood 2.9 g/dL (3.4-5.0); Albumin/Globulin Ratio 0.7 (0.8-1.8); Bilirubin, Total 0.4 mg/dL (0.1-1.0); Bun/Creatinine Ratio 13.3 (12.0-20.0); Calcium, Blood 7.8 mg/dL (8.5-10.1); Creatinine, Blood 1.58 mg/dL (0.40-1.00); Globulin, Blood 4.3 g/dL (2.2-4.0); Magnesium, Blood 1.9 mg/dL (1.6-2.4); Potassium, Blood 4.1 mmol/L (3.5-5.5); Total Protein, Blood 7.2 g/dL (6.4-8.2)
[2024-11-02 07:30] VITALS: BP 137/73
[2024-11-02] MEDS ORDERED: Enoxaparin 40 MG/0.4 ML SYR SC SCH (09:00)
[2024-11-02] MEDS ORDERED: Rivaroxaban 10 MG Tab PO SCH (09:00)
[2024-11-02] MEDS ORDERED: Topiramate 25 MG Tab PO SCH (09:00)
--- NOTE | 2024-11-02 10:27 | NUR ---
ASSUMED CARE OF PATIENT. ASLEEP AT SHIFT CHANGE. NS @ 100 VIA LAC. SPO2 @ 2LPM/NC. CONTINUOUS BiOx IN PLACE. BED IN LOWEST POSITION. CALL LIGHT WITHINR EACH.
[2024-11-02] MEDS ORDERED: OxyCODONE 5 mg/Acetamin 325 mg TABLET PO PRN (14:50)
[2024-11-02 16:02] VITALS: BP 138/84
--- NOTE | 2024-11-02 18:21 | NUR ---
END OF SHIFT SUMMARY: A&Ox4. PLEASANT AND COOPERATIVE WITH CARE. CALLS APPROPRIATELY AND IS ABLE TO ADVOCATE NEEDS EFFECTIVELY. CONTINENT OF BOWEL AND BLADDER. STAND-PIVOT TO BSC. 1PA c FWW TO RECLINER. MEDS WHOLE c FLUIDS. CONTINUOUS BiOx IN PLACE. MAINTAINING SPO2 >92% ON RA c SOME INTERMITTENT DESATTING DURING WHICH SHE IS NOTED TO BE HOLDING HER BREATH AND GRUNTING. WORKED WITH PT/OT AND WAS ABLE TO STAND-PIVOT TO RECLINER ON ROOM AIR. CLARENCE Weiner TODAY. HOME MEDICATIONS RECONCILED AND RESTARTED. BED IN LOWEST POSITION, CALL LIGHT WITHIN REACH, ALL NEEDS MET. REPORT TO ONCOMING NURSE.
[2024-11-02 20:00] VITALS: BP 123/68
[2024-11-02] MEDS ORDERED: Docusate Sodium 100 MG Cap PO SCH (21:00)
[2024-11-02] MEDS ORDERED: Sennosides 8.6 MG Tab PO SCH (21:00)
[2024-11-02 23:34] VITALS: BP 151/77
[2024-11-03 04:46] VITALS: BP 142/80
[2024-11-03 06:54] LABS: Anion Gap 9 mmol/L (3-11); Blood Urea Nitrogen 14 mg/dL (8-24); Bun/Creatinine Ratio 9.8 (12.0-20.0); CHOL/HDL RATIO 3.9; CO2, Blood 24 mmol/L (21-32); Calcium, Blood 8.1 mg/dL (8.5-10.1); Chloride, Blood 109 mmol/L (98-108); Cholesterol 112 mg/dL (50-200); Creatinine, Blood 1.43 mg/dL (0.40-1.00); Glomerular Filtration Rate 42 (60-); Glucose, Blood 114 mg/dL (70-99); HDL Cholesterol 29 mg/dL (>39); LDL/HDL RATIO 1.9; Low Density Lipoprotein Chol 54 mg/dL (0-110); Potassium, Blood 3.9 mmol/L (3.5-5.5); Sodium, Blood 138 mmol/L (136-145); Triglycerides 145 mg/dL (30-160); Very Low Density Lipoprot Chol 29 mg/dL (6-32)
--- NOTE | 2024-11-03 07:18 | NUR ---
AGRICULTURAL PLOW OPERATOR SUMMARY PT IS STILL EXPERIENCING BOUTS OF SEVERE ABDOMINAL PAIN R/T PANCREATITIS. SHE IS ABLE TO TOLERATE SMALL SIPS OF CLEAR LIQUIDS INTERMITTENTLY.
[2024-11-03 07:25] VITALS: BP 144/77
--- NOTE | 2024-11-03 17:49 | NUR ---
Pt. is awake and sitting on the side of her bed when she welcomed my visit. Pt. is pleasant. Facilitated a short life review. Pt. displayed evidence of pain but welcomed prayer. Prayed for the Pt. Pt. verbalized gratitude and welcomed this hse specialist to return.
--- NOTE | 2024-11-03 18:16 | NUR ---
SHIFT SUMMARY: PT A&O X4. PLEASANT AND COOPERATIVE WITH CARE. 1PA TO BSC. REDNESS NOTED TO UPPER BUTTOCK. POWDER APPLIED. PT STATES PAIN IS BETTER THIS SHIFT. CURRENT PAIN LEVEL OF 4-5/10. MEDICATED PER EMAR FOR PAIN. TELE SENT BACK THERE IS NO ORDER FOR ONE AND A COMPLETED ORDER FROM 11/01/2024. UPGRADED TO FULL LIQUID DIET AND TOLERATING WELL. CALL LIGHT IN REACH. BED IN LOWEST POSITION.
[2024-11-03 19:58] VITALS: BP 143/76
[2024-11-04 02:34] VITALS: BP 142/82
[2024-11-04 04:45] LABS: Hematocrit 34.7 % (33.0-51.0); Hemoglobin 11.3 g/dL (11.5-16.0); Mean Corpuscular HGB 29.3 pg (26.0-34.0); Mean Corpuscular HGB Conc 32.6 g/dL (31.5-36.5); Mean Corpuscular Volume 90 fL (80-100); Mean Platelet Volume 10.2 fL (9.1-12.4); Platelet Count 251 K/mm3 (150-400); RDW Coefficient Variation 13.2 % (11.7-14.2); RDW Standard Deviation 43.2 fL (35.1-46.3); Red Blood Cell Count 3.86 M/mm3 (3.80-5.20); White Blood Cell Count 7.05 K/mm3 (4.00-11.30)
--- NOTE | 2024-11-04 05:03 | NUR ---
SHIFT SUMMARY YOUSIF WAS ALERT AND FULLY ORIENTED ON ASSESSMENT. PT MEDICATED FOR PAIN PRN, PAIN WELL CONTROLLED AT THIS TIME. PT ON CPAP FOR SLEEP, WITH CONT BIOX, SATS >90. NO ACUTE EVENTS OR NOTED CHANGES TO PT CONDITION.
[2024-11-04 05:10] LABS: Albumin, Blood 2.9 g/dL (3.4-5.0); Anion Gap 7 mmol/L (3-11); Blood Urea Nitrogen 12 mg/dL (8-24); Bun/Creatinine Ratio 8.9 (12.0-20.0); CO2, Blood 24 mmol/L (21-32); Calcium, Blood 8.2 mg/dL (8.5-10.1); Chloride, Blood 109 mmol/L (98-108); Creatinine, Blood 1.35 mg/dL (0.40-1.00); Glomerular Filtration Rate 45 (60-); Glucose, Blood 121 mg/dL (70-99); Magnesium, Blood 2.1 mg/dL (1.6-2.4); Phosphorus, Blood 2.8 mg/dL (2.5-4.9); Potassium, Blood 3.7 mmol/L (3.5-5.5); Sodium, Blood 136 mmol/L (136-145)
[2024-11-04 07:17] VITALS: BP 160/91
[2024-11-04] MEDS ORDERED: Metoprolol Succinate 25 MG TABCR PO SCH (10:00)
[2024-11-04 10:58] VITALS: BP 172/95
[2024-11-04 16:48] VITALS: BP 181/111
--- NOTE | 2024-11-04 17:52 | NUR ---
SHIFT SUMMARY: PT A&O X4. PLEASANT AND COOPERATIVE WITH CARE. PT STATES SHE IS FEELING MUCH BETTER THIS SHIFT. LIPASE IMPROVED. PAIN 2-11/25 T/O SHIFT. MEDICATED PER EMAR. PT ABLE TO WALK A LAP AROUND THE UNIT WITHOUT COMPLAINTS WITH WALKER AND LEG MAN. PT WINDED UPON ARRIVAL BACK TO ROOM BUT NO C/O PAIN. DIET UPGRADED TO REGULAR DIET W/O COMPLICATIONS. HTN NOTED AND WILL RELAY TO DR. BRADLEY. CALL LIGHT IN REACH. BED IN LOWEST POSITION.
[2024-11-04 18:48] VITALS: BP 136/77
[2024-11-04 19:35] VITALS: BP 153/83
[2024-11-05] VITALS (14 sets, daily range): BP systolic 137–186; BP diastolic 72–135
[2024-11-05] MEDS ORDERED: HydrALAZINE HCl 20 MG / ML 1ML Vial IV ONE (04:40)
[2024-11-05] MEDS ORDERED: Nitroglycerin 0.4 MG SUBL SL PRN (05:15)
[2024-11-05 05:21] LABS: Bun/Creatinine Ratio 6.8 (12.0-20.0); Calcium, Blood 8.5 mg/dL (8.5-10.1); Creatinine, Blood 1.33 mg/dL (0.40-1.00); Potassium, Blood 4.3 mmol/L (3.5-5.5)
[2024-11-05 05:34] LABS: BASOPHILS ABSOLUTE AUTO 0.01 K/mm3 (0.00-0.23); BASOPHILS PERCENT AUTO 0 % (0-2); EOSINOPHILS ABSOLUTE AUTO 0.79 K/mm3 (0.00-0.68); EOSINOPHILS PERCENT AUTO 8 % (0-6); Hematocrit 37.4 % (33.0-51.0); Hemoglobin 12.2 g/dL (11.5-16.0); IMMATURE GRAN ABSOLUTE AUTO 0.02 K/mm3 (0.00-0.10); IMMATURE GRAN PERCENT AUTO 0 % (0-1); LYMPHOCYTES ABSOLUTE AUTO 1.92 K/mm3 (0.84-5.20); LYMPHOCYTES PERCENT AUTO 20 % (21-46); MONOCYTES ABSOLUTE AUTO 0.63 K/mm3 (0.16-1.47); MONOCYTES PERCENT AUTO 7 % (4-13); Mean Corpuscular HGB 29.7 pg (26.0-34.0); Mean Corpuscular HGB Conc 32.6 g/dL (31.5-36.5); Mean Corpuscular Volume 91 fL (80-100); Mean Platelet Volume 10.2 fL (9.1-12.4); NEUTROPHILS ABSOLUTE AUTO 6.16 K/mm3 (1.96-9.15); NEUTROPHILS PERCENT AUTO 65 % (41-73); Platelet Count 272 K/mm3 (150-400); RDW Coefficient Variation 13.2 % (11.7-14.2); RDW Standard Deviation 43.8 fL (35.1-46.3); Red Blood Cell Count 4.11 M/mm3 (3.80-5.20); White Blood Cell Count 9.53 K/mm3 (4.00-11.30)
[2024-11-05] MEDS ORDERED: FentaNYL Citrate 50 MCG/ML 2 ML Injection IV PRN (06:15)
[2024-11-05] MEDS ORDERED: NS 1,000 ML IV ONE (06:15)
--- NOTE | 2024-11-05 06:33 | NUR ---
TELEPHONE SERVICE ADVISER SUMMARY AND HOSPITALIST CONTACT PT A/OX4. PT ABLE TO MAKE NEEDS KNOWN. PT DENYING PAIN AND N&V UNTIL ABOUT 0430. PT REPORT NEW ONSET CHEST PAIN. PT STATED PAIN DIFFERENT FROM PREVIOUS EPIGASTRIC PAIN; PT ALSO HAVING ELEVATED BLOOD PRESSURE. CALL TO HOSPITALIST; NEW ORDER FOR ECG, TELE, TROPONIN, BNP, APRESOLINE 10MG IV ONE. ECG SHOWED CHANGE FROM ORIGINAL AT ADMIT. NOTIFIED DR VILLEGAS. NEW ORDER FOR NITRO. ADMINSITERED NITRO X3 EVERY 5MINUTES. PT REPORTED SLIGHT IMPORVEMENT AFTER THIRD DOSE OF NITRO. DR VILLEGAS AT BEDSIDE 0620; EVALUATED PT AND ADVISED PT WOULD LIKELY STAY ANOTHER DAY. NEW ORDERS TO RETURN PT TO NPO AND RECHECK LIPASE. NEW ORDER FOR IV FENTANYL FOR PAIN. TELE READING NORMAL SINUS IN THE 70'S. PT EDUCATED ON NEW S/S TO REPORT. CALL LIGHT IN REACH. REGULAR ROUNDING T/O SHIFT COMPLETE. CARE WILL CONTINUE UNTIL REPORT GIVEN TO ONCOMING NURSE.
[2024-11-05] MEDS ORDERED: Metoprolol Succinate 50 MG TABCR PO SCH (09:00)
[2024-11-05] MEDS ORDERED: Pantoprazole Sodium 40 MG Injection IV STA (11:51)
[2024-11-05] MEDS ORDERED: ALPRAZolam 0.25 MG Tab PO PRN (16:55)
--- NOTE | 2024-11-05 19:32 | NUR ---
SHIFT SUMMARY PATIENT ALERT AND INTERACTIVE. PATIENT UP TO BEDSIDE COMMODE INDEPENDENTLY AT TIMES. PATIENT CONTINUES TO HAVE VARIOUS SYMPTOMS. PATIENT C/O EPIGASTRIC PAIN EARLY ON SHIFT THAT SELF RESOLVED. THEN VERBALIZED HEADACHE. PATIENT MEDICATED FOR HEADACHE. PATIENT ALSO ANXIOUS AT TIMES BUT EASILY DISTRACTED. PATIENT UNABLE TO HAVE MRI BECAUSE OF SIZE. BP CONTINUES TO BE LABILE. PATIENT NOTED TO HAVE LOWER LEG EDEMA. PLAN TO POSSIBLY DISCHARGE HOME TOMORROW. PT RESIDES A [facility],
[2024-11-06] VITALS (7 sets, daily range): BP systolic 145–175; BP diastolic 71–85
[2024-11-06] MEDS ORDERED: Ondansetron HCl 2 MG / ML 2ML Vial IV PRN ×2 (01:35→11:00)
[2024-11-06] MEDS ORDERED: HydrALAZINE HCl 20 MG / ML 1ML Vial IV PRN (01:35)
--- NOTE | 2024-11-06 02:26 | NUR ---
HOSPITALIST CONTACT PT C/O NAUSEA WITH VOMITTING. PT CONTINUES TO HAVE HIGH BLOOD PRESSURE. CALL TO CLIENT RELATION SPECIALIST HOSPITALIST. SPOKE TO DR VILLEGAS. NEW ORDER FOR ZOFRAN 4MG IV Q6 PRN. DISCUSSED PT HOME MED LISINOPRIL WHICH WAS NOT ORDERED. OPTED TO NOT ORDER LISINOPRIL DUE TO DECREASED KIDNEY FUNCTION. NEW ORDER FOR 10MG APRESOLINE IV Q6 PRN FOR SYS BP GREATER THAN 160.
[2024-11-06] MEDS ORDERED: Metoclopramide HCl 5MG / ML 2ML Vial IV PRN (04:15)
--- NOTE | 2024-11-06 04:59 | NUR ---
HOSPITALIST AND PHARMACY CONTACT. DR VILLEGAS AT BEDSIDE. PT CONTINUING WITH N&V. DR ORDERED REGLAN IV. PHARMACY DECLINED MEDICATION DUE TO INTERACTION WITH ANOTHER MED. PHENERGAN PO OR SUPPOSITORY WOULD BE SAFE PER PHARMACY. DISCUSSED WITH PT--PT SAID SHE WOULD NOT TAKE SUPPOSITORY. CALL BACK TO DR VILLEGAS TO DISCUSS; NEW ORDER FOR ONE TIME DOSE OF 0.5MG IV ATIVAN.
--- NOTE | 2024-11-06 04:59 | NUR ---
PT HAS BEEN RESTLESS T/O THE SHIFT. C/O NAUSEA, VOMITTING, AND HEADACHE T/O SHIFT. FREQUENTLY MEDICATED WITH CONTINUED VOMITTING.
[2024-11-06] MEDS ORDERED: LORazepam 2 MG/ML 1ML Injection IV ONE (05:00)
[2024-11-06] MEDS ORDERED: Pantoprazole Sodium 40 MG Tab PO SCH (06:00)
[2024-11-06] MEDS ORDERED: Pantoprazole Sodium 40 MG Injection IV SCH (06:00)
[2024-11-06 06:48] LABS: Bun/Creatinine Ratio 7.4 (12.0-20.0); Calcium, Blood 8.4 mg/dL (8.5-10.1); Creatinine, Blood 1.35 mg/dL (0.40-1.00); Potassium, Blood 3.9 mmol/L (3.5-5.5)
[2024-11-06] MEDS ORDERED: AmLODIPine Besylate 5 MG Tab PO SCH (09:00)
[2024-11-06] MEDS ORDERED: Furosemide 40 MG Tab PO SCH (09:00)
[2024-11-06] MEDS ORDERED: Ondansetron HCl 2 MG / ML 2ML Vial IV STA (10:42)
[2024-11-06] MEDS ORDERED: SUMAtriptan succinate 50 MG Tab PO STA (18:06)
--- NOTE | 2024-11-06 18:15 | NUR ---
SHIFT SUMMARY PATIENT ALERT AND INTERACTIVE BUT STOIC AND FLAT. PATIENT HAVING NAUSEA AND VOMITING MOST OF THE NIGHT AND TODAY. PATIENT ALSO COMPLAINING OF HEADACHE. PATIENT MEDICATED PER OCT. DR. BRADLEY NOTIFIED. PATIENT TAKEN TO CT TO FOLLOW UP ON NAUSEA WITH NO SIGNIFICANT FINDINGS. PATIENT CONTINUES TO HAVE HEADACHE THROUGHOUT SHIFT. PATIENT MEDICATED WITH IMETREX TO SEE IF THAT HELPS. PATIENT REPORTS THAT SHE DOES HAVE HEADACHES AT HOME THAT CAUSE NAUSEA AND VOMITTING FOR A DAY. PATIENT STATES SHE JUST SLEEPS.
[2024-11-06] MEDS ORDERED: SUMAtriptan succinate 50 MG Tab PO PRN (19:00)
[2024-11-07] VITALS: BP 139/77
[2024-11-07 04:32] VITALS: BP 147/89
--- NOTE | 2024-11-07 05:05 | NUR ---
SHIFT SUMMARY PATIENT IS ALERT AND ORIENTED. PATIENT HAS HAD NO ACUTE EVENTS THIS SHIFT. VITAL SIGNS REVIEWED. PATIENT HAS HAD NO COMPLAINTS OF PAIN, NAUSEA, SOB OR VOMITTING THIS SHIFT. PATIENT HAS BEEN SLEEPING MOST OF SHIFT. BED IN LOCKED AND LOWEST POSITION. CALL LIGHT IN PLACE.
[2024-11-07 06:09] LABS: Calcium, Blood 8.6 mg/dL (8.5-10.1); Creatinine, Blood 1.37 mg/dL (0.40-1.00); Potassium, Blood 3.4 mmol/L (3.5-5.5)
[2024-11-07 07:41] VITALS: BP 158/80
[2024-11-07] MEDS ORDERED: Potassium Chloride 10 Meq Tablet SA PO SCH (09:00)
[2024-11-07] MEDS ORDERED: VILAZODONE 20 MG PO SCH (09:00)
[2024-11-07] MEDS ORDERED: Cholecalciferol 1000 Unit Tablet (=25MCG) PO SCH (09:00)
[2024-11-07] MEDS ORDERED: Calcium/Vit D 600 mg-400 Unit Tab PO SCH (09:00)
[2024-11-07 11:32] VITALS: BP 157/83
[2024-11-07] MEDS ORDERED: Percocet 5-3251 EACH PO ×2 (13:11→13:15)
[2024-11-07] MEDS ORDERED: ONDA4ODT MM (13:11)
[2024-11-07] MEDS ORDERED: POTA10T PO (13:13)
[2024-11-07] MEDS ORDERED: METO50ER PO (13:23)
[2024-11-07] MEDS ORDERED: SUMA25 PO (13:24)
--- NOTE | 2024-11-07 15:00 | NUR ---
SHIFT SUMMARY AND DISCHARGE PATIENT ALERT AND INTERACTIVE. MORE TALKATIVE TODAY. PATIENT CONTINUES TO SAY SHE HAS A HEADACHE BUT RATES IT A ONE. PATIENT UP TO BEDSIDE COMMODE INDEPENDENTLY BUT DOES NOT ALWAYS PERFORM GOOD HYGIENE. PT RE EDUCATED ON THE IMPORTANCE OF GOOD HYGIENE WITH INCONTINENCE AND ALLOWING STAFF TO HELP IF NEEDED. DISCHARGE INSTRUCTIONS REVIEWED WITH PATIENT. PATIENT TO HAVE HOME HEALTH FOLLOW UP WITH PATIENT. IV DC'D. BELONGINGS SENT HOME WITH PATIENT. PATIENT TAKEN OUT VIA WHEELCHAIR BY REEL BLADE BENDER FURNACE TENDER.
== END 2024-11-07 15:04 | disposition home health service (06) | DRG 439 ==
LOC: ER 07:03 → ERHOLD 09:55 → MEDS 09:55
PROVIDERS: Internal Medicine; Student in an Organized Health Care Education/Training Program; ADMIT Hospitalist
DX: K85.30 Drug induced acute pancreatitis without necrosis or infection (principal); Z68.43 Body mass index [BMI] 50.0-59.9, adult; T46.4X5A Adverse effect of angiotensin-converting-enzyme inhibitors, initial encounter; I12.9 Hypertensive chronic kidney disease with stage 1 through stage 4 chronic kidney disease, or unspecified chronic kidney disease; N18.31 Chronic kidney disease, stage 3a; G43.909 Migraine, unspecified, not intractable, without status migrainosus; M19.90 Unspecified osteoarthritis, unspecified site; G47.33 Obstructive sleep apnea (adult) (pediatric); G89.29 Other chronic pain; M54.9 Dorsalgia, unspecified; E88.89 Other specified metabolic disorders; F41.9 Anxiety disorder, unspecified; E66.01 Morbid (severe) obesity due to excess calories; Z86.718 Personal history of other venous thrombosis and embolism; Z79.01 Long term (current) use of anticoagulants; Z79.82 Long term (current) use of aspirin; Z79.899 Other long term (current) drug therapy; Z86.73 Personal history of transient ischemic attack (TIA), and cerebral infarction without residual deficits; Z90.49 Acquired absence of other specified parts of digestive tract; Z90.710 Acquired absence of both cervix and uterus; Z98.890 Other specified postprocedural states
CPT/HCPCS: 36415; 74177; 80048; 80053; 80061; 80069; 80076; 83690; 83735; 83880; 84484; 85025; 85027; 93005; 93010; 94660; 94760; 94762; 96361; 96374-59; 96375; 97110; 97116; 97161; 97165; 97530; 97535; 99285-25; A9270; J0360; J1171; J2060; J2270; J2405; J2470; J2543; J3010; J7030; J7120; Q9967

== ENCOUNTER 2024-11-23 12:13 | Inpatient (IN) | payer OTHER ==
[~2024-11-23] VITALS: Ht 167.6 cm; Wt 106.3 kg
[~2024-11-23 12:13] MED LIST changes: +ASPI325 PO; +CALCIUM 600-VI1 EAC3 PO; +FEROSUL325 M1 PO; +Percocet 5-3251 EACH PO; +Prinivil10 MG PO; +SUMA25 PO; +THERA-D2000 UNIT PO; +TIZA4 PO; +TOPI50 PO; +TRAZ50 PO; +VILAZODONE HCL20 MG PO
[2024-11-23 12:50] LABS: BASOPHILS ABSOLUTE AUTO 0.01 K/mm3 (0.00-0.23); BASOPHILS PERCENT AUTO 0 % (0-2); EOSINOPHILS ABSOLUTE AUTO 1.82 K/mm3 (0.00-0.68); EOSINOPHILS PERCENT AUTO 22 % (0-6); Hematocrit 40.4 % (33.0-51.0); IMMATURE GRAN ABSOLUTE AUTO 0.02 K/mm3 (0.00-0.10); IMMATURE GRAN PERCENT AUTO 0 % (0-1); LYMPHOCYTES ABSOLUTE AUTO 1.43 K/mm3 (0.84-5.20); LYMPHOCYTES PERCENT AUTO 17 % (21-46); MONOCYTES ABSOLUTE AUTO 0.52 K/mm3 (0.16-1.47); MONOCYTES PERCENT AUTO 6 % (4-13); Mean Corpuscular HGB 28.9 pg (26.0-34.0); Mean Corpuscular HGB Conc 32.2 g/dL (31.5-36.5); Mean Corpuscular Volume 90 fL (80-100); Mean Platelet Volume 10.7 fL (9.1-12.4); NEUTROPHILS ABSOLUTE AUTO 4.59 K/mm3 (1.96-9.15); NEUTROPHILS PERCENT AUTO 55 % (41-73); Platelet Count 202 K/mm3 (150-400); RDW Coefficient Variation 14.2 % (11.7-14.2); RDW Standard Deviation 46.1 fL (35.1-46.3); White Blood Cell Count 8.39 K/mm3 (4.00-11.30)
[2024-11-23 13:17] LABS: Albumin, Blood 3.1 g/dL (3.4-5.0); Albumin/Globulin Ratio 0.6 (0.8-1.8); Bilirubin, Total 0.3 mg/dL (0.1-1.0); Bun/Creatinine Ratio 14.9 (12.0-20.0); Calcium, Blood 8.1 mg/dL (8.5-10.1); Creatinine, Blood 1.41 mg/dL (0.40-1.00); Globulin, Blood 4.9 g/dL (2.2-4.0); Potassium, Blood 3.6 mmol/L (3.5-5.5)
[2024-11-23 15:16] LABS: Source, Urine Clean Catch
[2024-11-23 15:26] LABS: Appearance, Urine Hazy (Clear); Bilirubin, Urine Neg (Neg); Blood, Urine 3+ (Neg); Color, Urine Yellow (P-Yellow); Glucose Qualitative, Urine Neg (Neg); Ketones, Urine Neg (Neg); Leukocyte Esterase, Urine Neg (Neg); Nitrite, Urine Neg (Neg); Protein, Urine 2+ (Neg); Urobilinogen, Urine NORM (Normal)
[2024-11-23 15:32] LABS: Amorphous Light (0-Heavy); Bacteria Many /hpf; Granular Casts 0-2 /lpf (0); Renal Epithelial Few /hpf (0-Rare); Squamous Epithelial Cells Many /hpf (Few)
[2024-11-23] MEDS ORDERED: Prochlorperazine Edisylate 10 mg Vial IV ONE (16:50)
[2024-11-23] MEDS ORDERED: Morphine Sulfate 4 MG/1 ML Injection IV ONE (16:50)
[2024-11-23] MEDS ORDERED: NS 1,000 ML IV SCH (16:55)
[2024-11-23] MEDS ORDERED: Prochlorperazine Edisylate 10 mg Vial ONE (19:07)
[2024-11-23] MEDS ORDERED: Morphine Sulfate 4 MG/1 ML Injection ONE (19:07)
[2024-11-23] MEDS ORDERED: Ondansetron HCl 2 MG / ML 2ML Vial IV PRN (21:35)
[2024-11-23] MEDS ORDERED: Morphine Sulfate 4 MG/1 ML Injection IV PRN (21:35)
[2024-11-23] MEDS ORDERED: Lactated Ringer's 1,000 ML IV SCH (21:40)
[2024-11-23] MEDS ORDERED: Metoclopramide HCl 5MG / ML 2ML Vial IV PRN (21:40)
[2024-11-23 23:31] VITALS: BP 126/84
--- NOTE | 2024-11-23 23:31 | NUR ---
ARRIVAL TO UNIT PT ARRIVED TO UNIT VIA GOURNEY. PT ABLE TO IND AMB TO BED. PT STATED NEED TO VOID UPON ARRIVAL TO UNIT. PT IND CHANGE ATTENDS & VOID. PT REPORTS INCREASED PAIN c AMB. DENIES N/V. AGREEABLE TO NPO STATUS. IV FLUIDS INFUSING PER EMAR. VSS. A&Ox4, POOR HISTORIAN. PT STATES HER SISTER WILL BRING HER MED LIST FROM HOME IN AM. ORIENTED TO UNIT. RESTING IN BED c CALL LIGHT IN REACH.
[2024-11-24] MEDS ORDERED: Morphine Sulfate 4 MG/1 ML Injection IV PRN (04:00)
[2024-11-24 04:23] VITALS: BP 140/74
[2024-11-24 05:54] LABS: BASOPHILS ABSOLUTE AUTO 0.02 K/mm3 (0.00-0.23); BASOPHILS PERCENT AUTO 0 % (0-2); EOSINOPHILS ABSOLUTE AUTO 1.52 K/mm3 (0.00-0.68); EOSINOPHILS PERCENT AUTO 20 % (0-6); Hematocrit 41.2 % (33.0-51.0); Hemoglobin 13.1 g/dL (11.5-16.0); IMMATURE GRAN ABSOLUTE AUTO 0.01 K/mm3 (0.00-0.10); IMMATURE GRAN PERCENT AUTO 0 % (0-1); LYMPHOCYTES ABSOLUTE AUTO 1.52 K/mm3 (0.84-5.20); LYMPHOCYTES PERCENT AUTO 20 % (21-46); MONOCYTES ABSOLUTE AUTO 0.52 K/mm3 (0.16-1.47); MONOCYTES PERCENT AUTO 7 % (4-13); Mean Corpuscular HGB 28.9 pg (26.0-34.0); Mean Corpuscular HGB Conc 31.8 g/dL (31.5-36.5); Mean Corpuscular Volume 91 fL (80-100); Mean Platelet Volume 10.8 fL (9.1-12.4); NEUTROPHILS ABSOLUTE AUTO 3.99 K/mm3 (1.96-9.15); NEUTROPHILS PERCENT AUTO 53 % (41-73); Platelet Count 206 K/mm3 (150-400); RDW Coefficient Variation 14.2 % (11.7-14.2); RDW Standard Deviation 46.9 fL (35.1-46.3); Red Blood Cell Count 4.54 M/mm3 (3.80-5.20); White Blood Cell Count 7.58 K/mm3 (4.00-11.30)
--- NOTE | 2024-11-24 06:11 | NUR ---
SHIFT SUMMARY S/P PANCREATITIS. NO ACUTE CHANGES OVERNIGHT. VSS. NPO. IV FLUIDS INFUSING PER EMAR. PT REPORTS PAIN TOLERABLE, MEDICATED PER EMAR. PT SLEPT WELL T/O NIGHT. VOIDING. AMBULATES SBA R/T LINES. CALL LIGHT IN REACH, BED IN LOWEST POSITION, WILL REPORT TO DAY RN.
[2024-11-24 06:36] LABS: Albumin/Globulin Ratio 0.6 (0.8-1.8); Bilirubin, Total 0.3 mg/dL (0.1-1.0); Bun/Creatinine Ratio 15.5 (12.0-20.0); Calcium, Blood 8.3 mg/dL (8.5-10.1); Creatinine, Blood 1.16 mg/dL (0.40-1.00); Globulin, Blood 4.7 g/dL (2.2-4.0); Potassium, Blood 3.5 mmol/L (3.5-5.5); Total Protein, Blood 7.7 g/dL (6.4-8.2)
[2024-11-24 07:09] VITALS: BP 147/82
[2024-11-24] MEDS ORDERED: Metoprolol Succinate 50 MG TABCR PO SCH (09:00)
[2024-11-24 09:17] VITALS: BP 124/76
[2024-11-24] MEDS ORDERED: OxyCODONE HCL 5 MG TAB PO PRN (11:05)
--- NOTE | 2024-11-24 13:50 | NUR ---
Pt. is awake in bed when she welcomes my visit. Pt. is unsettled by abdominal pain, and verbalized that she could not tolerate her ensure. Listen with empathy and a calming presence. pt. welcomed prayer. Prayed with Pt. Pt. verblaized gratitude for the spiritual care visit and welcomed this photographic spotter to return.
[2024-11-24 14:16] VITALS: BP 143/74
--- NOTE | 2024-11-24 16:18 | NUR ---
SUMMARY PATIENT AOX4, SBA TO INDEP IN ROOM. TOLERATING CL, MEDICATED WITH ORAL PAIN MEDS. PATIENT SHOWERED AND HAD LINEN CHANGED. IV FLUIDS @75/HR. VSS. CALL LIGHT IN REACH.
[2024-11-24] MEDS ORDERED: Rivaroxaban 10 MG Tab PO SCH (18:00)
[2024-11-24 19:25] VITALS: BP 138/85
[2024-11-24 23:53] VITALS: BP 129/85
[2024-11-25 02:48] VITALS: BP 134/86
--- NOTE | 2024-11-25 05:41 | NUR ---
SHIFT SUMMARY PATIENT TOLERATED CPAP MOST OF THE NIGHT. HR WHILE SLEEPING DIPS INTO 40'S-50'S. LOWEST I SAW WAS 49 THEN WENT UP TO 52. THIS WAS NOT NEW FOR PATIENT. ASSISTED PATIENT WHEN NEEDED. SCHEDULED MEDICATIONS GIVEN ORDERED AND PRN GIVEN NEEDED. MEDICATED FOR PAIN LAST DOSE GIVE AT 0154. PATIENT AMBULATES TO . IVF INFUSING AT 75ML/HR. WILL GIVE REPORT TO ONCOMING RN TAKING PATIENT.
[2024-11-25 07:11] LABS: Hematocrit 35.7 % (33.0-51.0); Hemoglobin 11.9 g/dL (11.5-16.0); Mean Corpuscular HGB 29.7 pg (26.0-34.0); Mean Corpuscular HGB Conc 33.3 g/dL (31.5-36.5); Mean Corpuscular Volume 89 fL (80-100); Mean Platelet Volume 10.8 fL (9.1-12.4); Platelet Count 176 K/mm3 (150-400); RDW Coefficient Variation 13.9 % (11.7-14.2); RDW Standard Deviation 45.4 fL (35.1-46.3); Red Blood Cell Count 4.01 M/mm3 (3.80-5.20); White Blood Cell Count 6.28 K/mm3 (4.00-11.30)
[2024-11-25 07:12] VITALS: BP 138/103
[2024-11-25 07:50] LABS: Albumin, Blood 2.9 g/dL (3.4-5.0); Anion Gap 8 mmol/L (3-11); Blood Urea Nitrogen 15 mg/dL (8-24); Bun/Creatinine Ratio 11.8 (12.0-20.0); CO2, Blood 23 mmol/L (21-32); Calcium, Blood 8.2 mg/dL (8.5-10.1); Chloride, Blood 110 mmol/L (98-108); Creatinine, Blood 1.27 mg/dL (0.40-1.00); Glomerular Filtration Rate 49 (60-); Glucose, Blood 115 mg/dL (70-99); Magnesium, Blood 1.9 mg/dL (1.6-2.4); Potassium, Blood 3.1 mmol/L (3.5-5.5); Sodium, Blood 138 mmol/L (136-145)
[2024-11-25] MEDS ORDERED: Potassium Chloride 20 MEQ TabCR PO ONE (09:15)
[2024-11-25 14:23] VITALS: BP 148/89
--- NOTE | 2024-11-25 14:33 | NUR ---
BLEEDING FROM CUT IN BUTTCRACK AFTER WIPING. GAUZE TUCKED IN BETWEEN BUTTCHECKS.
--- NOTE | 2024-11-25 15:55 | NUR ---
SMALL AMOUNT OF BLOOD ON GAUZE BUT APPEARS TO HAVE SLOWWED/STOPPED.
--- NOTE | 2024-11-25 16:17 | NUR ---
SHIFT SUMMARY ABD PAIN HAS REMAINED UNCHANGED DESPITE STARTING SMALL AMOUNT OF FULL LQs. NO SHARP INCREASES OR N/V POST PUDDING. WILL HAVE FULL LQ DINNER. IVF STOPPED. HAD SOME BLEEDING FROM BUTT CRACK BUT APPEARS TO HAVE RESOLVED.
--- NOTE | 2024-11-25 16:54 | NUR ---
ASSUMED CARE ASSUMED CARE OF PT. PT RESTING QUIETLY IN BED. IV PRESENTLY TO SL. DENIES COMPLAINTS. AWAITING DIETARY TRAY. WILL CONTINUE TO MONITOR.
--- NOTE | 2024-11-25 18:20 | NUR ---
END OF SHIFT PT EATING FIRST FULL LIQUID TRAY WITHOUT COMPLAINTS. IV PRESENTLY TO SL. WILL CONTINUE TO MONITOR
[2024-11-25 19:22] VITALS: BP 133/77
[2024-11-26 00:13] VITALS: BP 142/78
[2024-11-26 04:08] VITALS: BP 151/82
--- NOTE | 2024-11-26 05:09 | NUR ---
STONEWORK TRACER SUMMARY PT AAOX4 AND PLEASANT. TOLERATED SMALL AMOUNT OF HER FULL LIQUID DIET AT DINNER TIME. MEDICATED FOR ABD PAIN X1 TOWARD START OF SHIFT AND PT HAS SLEPT WELL THROUGH THE NIGHT. CONTINUES TO BE SINUS JEREMY IN THE HIGH 40'S TO LOW 50'S WITH ONE 4 BEAT RUN IN THE HIGH 30'S PER RUBBER PRODUCTION MACHINE OPERATOR. PT WAS ASYMPTOMATIC AT THAT TIME AND HAS NOT GONE THAT LOW SINCE. PT REPORTS A GOOD IMPROVEMENT IN HER NAUSEA TONIGHT WELL AND HAS NOT REQUIRED ANY NAUSEA MEDS TONIGHT. WILL CONTINUE TO MONITOR.
[2024-11-26 05:46] LABS: Hematocrit 37.3 % (33.0-51.0); Hemoglobin 12.4 g/dL (11.5-16.0); Mean Corpuscular HGB 29.1 pg (26.0-34.0); Mean Corpuscular HGB Conc 33.2 g/dL (31.5-36.5); Mean Corpuscular Volume 88 fL (80-100); Mean Platelet Volume 10.5 fL (9.1-12.4); Platelet Count 186 K/mm3 (150-400); RDW Coefficient Variation 13.9 % (11.7-14.2); Red Blood Cell Count 4.26 M/mm3 (3.80-5.20); White Blood Cell Count 5.76 K/mm3 (4.00-11.30)
[2024-11-26 06:05] LABS: Albumin, Blood 2.9 g/dL (3.4-5.0); Anion Gap 10 mmol/L (3-11); Blood Urea Nitrogen 13 mg/dL (8-24); Bun/Creatinine Ratio 11.1 (12.0-20.0); CO2, Blood 20 mmol/L (21-32); Chloride, Blood 112 mmol/L (98-108); Creatinine, Blood 1.17 mg/dL (0.40-1.00); Glomerular Filtration Rate 54 (60-); Glucose, Blood 99 mg/dL (70-99); Phosphorus, Blood 2.9 mg/dL (2.5-4.9); Potassium, Blood 3.5 mmol/L (3.5-5.5); Sodium, Blood 138 mmol/L (136-145)
[2024-11-26 07:03] VITALS: BP 145/77
[2024-11-26] MEDS ORDERED: Metoprolol Succinate 25 MG TABCR PO SCH (09:00)
[2024-11-26 14:46] VITALS: BP 155/96
--- NOTE | 2024-11-26 16:43 | NUR ---
SUMMARY: NO CHANGE TODAY. PT INDEP IN ROOM, USES CALL LIGHT. TELE SB 55-60 TODAY. PT REPORTS HAVING BM THIS MORNING. DENIES PAIN AND N/V. PLAN IS TO ADVANCE DIET. PT WILL HAVE REG TRAY FOR DINNER. NO ACUTE CONCERNS.
[2024-11-26 19:25] VITALS: BP 172/87
[2024-11-26] MEDS ORDERED: Metoprolol Succinate 50 MG TABCR PO ONE (21:25)
[2024-11-26 22:45] VITALS: BP 165/77
[2024-11-27] MEDS ORDERED: TraZODone HCl 50 MG Tab PO SCH (02:05)
[2024-11-27 02:33] VITALS: BP 149/84
--- NOTE | 2024-11-27 04:42 | NUR ---
SHIFT SUMMARY. YOUSIF WAS ALERT AND FULLY ORIENTED ON ASSESSMENT. PT INDEPENDENT IN ROOM. PT DENIES PAIN OR NAUSEA. SKIN BREAKDOWN TO GLUTEAL CLEFT CLEANED AND PROTECTED WITH BARRIER PASTE. NO NEW COMPLAINTS. NO ACUTE EVENTS, OR NOTED CHANGES TO PT CONDITION. HOSPITALIST CONTACTED [facility] TO GET ORDER FOR PT HOME USE TRAZADONE, AND TO GET A DC ORDER FOR TELE D/T LACK OF TELE EVENTS.
[2024-11-27 07:10] VITALS: BP 171/92
[2024-11-27] MEDS ORDERED: Metoprolol Succinate 50 MG TABCR PO SCH (09:00)
--- NOTE | 2024-11-27 10:55 | NUR ---
DISCUSSED ELEVATED BLOOD PRESURE WITH DR. VIDAL, PLAN TO RE-CHECK PRESSURE AFTER LUNCH. PT REPORTED FEELING FULL AFTER BREAKFAST. PLAN TO SEE HOW PT TOLERATES LUNCH THEN POSSIBLE DISCHARGE HOME.
[2024-11-27 13:14] VITALS: BP 155/89
--- NOTE | 2024-11-27 13:40 | NUR ---
REDNESS AT IV REMOVAL SITE LAC REDNESS UNCHANGED FROM IV REMOVAL THIS MORNING. DR. VIDAL NOTIFIED, PER DR. VIDAL EDUCATE PT TO USE WARM COMPRESSES, TRIPLE ABX OINTMENT AND TO SEEK MEDICAL ATTENTION IF REDNESS INCREASES.
--- NOTE | 2024-11-27 13:55 | NUR ---
REDNESS AT IV SITE REDNESS OUTLINED WITH SKIN PEN. PT PROVIDED WITH ABX OINTMENT AND WARM COMPRESS APPLIED. PT EDUCATED TO CONTINUE ABX OINTMENT AND WARM COMPRESSES AT HOME. PT EDUCATED TO SEEK MEDICAL ATTENTION IF REDNESS INCREASES OUTSIDE THE OUTLINE, PAIN WORSENS OR PURULENT DISCHARGE BEGINS TO DRAIN FROM THE PUNCTURE SITE. SKIN PEN PROVIDED TO PT.
[2024-11-27] MEDS ORDERED: OXAYDO5 M1 PO (14:14)
[2024-11-27] MEDS ORDERED: METO50ER PO (14:25)
[2024-11-27] MEDS ORDERED: AMLO5 PO (14:26)
--- NOTE | 2024-11-27 14:43 | NUR ---
DISCHARGE PT WAS PROVIDED WITH WRITTEN AND VERBAL DISCHARGE INSTRUCTIONS, SHE REPORTED UNDERSTANDING. PT'S PHARMACY IS CLOSED TODAY, SHE REQUESTED THAT MEDICATIONS BE FAXED TO [facility] SO SHE CAN GET THEM TOMORROW. PT ACCEPTED TRANSPORTATION HOME BUT DECLINED TRANSPORTATION TO PHARMACY TODAY. PT VERBALIZED UNDERSTANDING THAT SHE WILL NEED TO WILDLIFE REMOVAL SPECIALIST HER MEDICATIONS TOMORROW MORNING. PT PROVIDED WITH [facility] CONTACT INFORMATION SO SHE CAN ARRANGE TRANSPORTATION TO OBTAIN PRESCRIPTIONS TOMORROW. PT DISCHARGED AT APPROXIMATELY 1442.
== END 2024-11-27 14:39 | disposition home or self-care (01) | DRG 439 ==
LOC: ER 12:13 → ERHOLD 21:31 → SURS 21:31
PROVIDERS: Internal Medicine; Nurse Practitioner Acute Care; Physician Assistant; ADMIT Internal Medicine
DX: K85.90 Acute pancreatitis without necrosis or infection, unspecified (principal); Z68.43 Body mass index [BMI] 50.0-59.9, adult; E66.01 Morbid (severe) obesity due to excess calories; N18.30 Chronic kidney disease, stage 3 unspecified; K76.0 Fatty (change of) liver, not elsewhere classified; G47.33 Obstructive sleep apnea (adult) (pediatric); R00.1 Bradycardia, unspecified; I12.9 Hypertensive chronic kidney disease with stage 1 through stage 4 chronic kidney disease, or unspecified chronic kidney disease; M19.90 Unspecified osteoarthritis, unspecified site; Z86.718 Personal history of other venous thrombosis and embolism; Z79.01 Long term (current) use of anticoagulants; Z86.73 Personal history of transient ischemic attack (TIA), and cerebral infarction without residual deficits; G43.909 Migraine, unspecified, not intractable, without status migrainosus; Z90.710 Acquired absence of both cervix and uterus; Z90.49 Acquired absence of other specified parts of digestive tract; Z98.890 Other specified postprocedural states
CPT/HCPCS: 36415; 74177; 80053; 80069; 81001; 83690; 83735; 85025; 85027; 87077; 87086; 87186; 93005; 93010; 94660; 94762; 96361; 96374; 96375; 99285-25; A9270; J0780; J2270; J2405; J7030; J7120; Q9967

== ENCOUNTER 2025-05-28 09:33 | Emergency (ER) | payer OTHER ==
[~2025-05-28] VITALS: Ht 167.6 cm; Wt 136.1 kg
[~2025-05-28 09:33] MED LIST changes: +METO50ER PO; +OXAYDO5 M1 PO
[2025-05-28] MEDS ORDERED: NS 1,000 ML IV SCH (09:55)
[2025-05-28] MEDS ORDERED: FentaNYL Citrate 50 MCG/ML 2 ML Injection IV ONE (10:00)
[2025-05-28] MEDS ORDERED: IMITREX100 MG PO (10:29)
[2025-05-28] MEDS ORDERED: CREON DR 36,001 EACH PO (10:30)
[2025-05-28 10:42] LABS: BASOPHILS ABSOLUTE AUTO 0.02 K/mm3 (0.00-0.23); BASOPHILS PERCENT AUTO 0 % (0-2); EOSINOPHILS ABSOLUTE AUTO 0.11 K/mm3 (0.00-0.68); EOSINOPHILS PERCENT AUTO 1 % (0-6); Hematocrit 38.5 % (33.0-51.0); Hemoglobin 12.6 g/dL (11.5-16.0); IMMATURE GRAN ABSOLUTE AUTO 0.01 K/mm3 (0.00-0.10); IMMATURE GRAN PERCENT AUTO 0 % (0-1); LYMPHOCYTES ABSOLUTE AUTO 1.39 K/mm3 (0.84-5.20); LYMPHOCYTES PERCENT AUTO 18 % (21-46); MONOCYTES ABSOLUTE AUTO 0.50 K/mm3 (0.16-1.47); MONOCYTES PERCENT AUTO 7 % (4-13); Mean Corpuscular HGB Conc 32.7 g/dL (31.5-36.5); Mean Corpuscular Volume 90 fL (80-100); NEUTROPHILS ABSOLUTE AUTO 5.57 K/mm3 (1.96-9.15); NEUTROPHILS PERCENT AUTO 73 % (41-73); NRBC ABSOLUTE 0.00 K/mm3 (0.00-0.02); NRBC Auto 0.0 /100 WBC (0.0-0.2); Platelet Count 163 K/mm3 (150-400); RDW Coefficient Variation 14.0 % (11.7-14.2); RDW Standard Deviation 45.4 fL (35.1-46.3)
[2025-05-28 11:13] LABS: Alanine Aminotransfer (ALT/SGP 30.0 U/L (12-78); Albumin, Blood 3.3 g/dL (3.4-5.0); Albumin/Globulin Ratio 0.7 (0.8-1.8); Anion Gap 8.0 mmol/L (3-11); Aspartate Aminotrans (AST/SGOT 21.0 U/L (12-37); Bilirubin, Total 0.3 mg/dL (0.1-1.0); Blood Urea Nitrogen 27.0 mg/dL (8-24); CO2, Blood 23.0 mmol/L (21-32); Calcium, Blood 8.9 mg/dL (8.5-10.1); Chloride, Blood 108.0 mmol/L (98-108); Creatinine, Blood 1.32 mg/dL (0.40-1.00); Globulin, Blood 4.8 g/dL (2.2-4.0); Glucose, Blood 123.0 mg/dL (70-99); Potassium, Blood 4.2 mmol/L (3.5-5.5); Sodium, Blood 135.0 mmol/L (136-145); Total Protein, Blood 8.1 g/dL (6.4-8.2)
[2025-05-28 11:44] LABS: Source, Urine Clean Catch
[2025-05-28 11:49] LABS: Bilirubin, Urine Neg (Neg); Glucose Qualitative, Urine Neg (Neg); Ketones, Urine Neg (Neg); Leukocyte Esterase, Urine Neg (Neg); Protein, Urine Neg (Neg); Specific Gravity, Urine 1.015 (1.003-1.022); Urobilinogen, Urine NORM (Normal)
[2025-05-28 11:54] LABS: Color, Urine Yellow (P-Yellow)
[2025-05-28 11:55] LABS: Red Blood Cells, Urine 0-2 /hpf (0-2); White Blood Cells, Urine 0-2 /hpf (0-5)
[2025-05-28] MEDS ORDERED: Ondansetron HCl 2 MG / ML 2ML Vial IV ONE (11:55)
[2025-05-28] MEDS ORDERED: Ondansetron 4 MG SoluTab SL ONE (12:40)
[2025-05-28] MEDS ORDERED: HYDROmorphone HCl/Pf 1MG SYR IV ONE (13:55)
[2025-05-28] MEDS ORDERED: Atropine/Scopalam/Hyoscam/PB 5 ML UDC PO ONE (15:15)
[2025-05-28] MEDS ORDERED: Pantoprazole Sodium 40 MG Injection IV ONE (15:20)
[2025-05-28] MEDS ORDERED: OMEP20ER PO (15:57)
[2025-05-28] MEDS ORDERED: HYOS.125 PO (15:57)
[2025-05-28 16:40] VITALS: BP 149/90
== END 2025-05-28 16:41 | disposition home or self-care (01) ==
LOC: ER 09:33
PROVIDERS: Student in an Organized Health Care Education/Training Program
DX: K31.89 Other diseases of stomach and duodenum (principal); K21.9 Gastro-esophageal reflux disease without esophagitis; I12.9 Hypertensive chronic kidney disease with stage 1 through stage 4 chronic kidney disease, or unspecified chronic kidney disease; N18.30 Chronic kidney disease, stage 3 unspecified; G43.909 Migraine, unspecified, not intractable, without status migrainosus; Z86.73 Personal history of transient ischemic attack (TIA), and cerebral infarction without residual deficits; Z79.899 Other long term (current) drug therapy
CPT/HCPCS: 71045; 74177; 80053; 81001; 83605; 83690; 84484; 85025; 93005; 93010; 96361; 96374-59; 96375; 99285-25; A9270; J1171; J2470; J3010; J7030; Q9967

== ENCOUNTER 2025-06-27 09:13 | Emergency (ER) | payer OTHER ==
[~2025-06-27] VITALS: Ht 167.6 cm; Wt 144.2 kg
[~2025-06-27 09:13] MED LIST changes: +CREON DR 36,001 EACH PO; +HYOS.125 PO; +IMITREX100 MG PO; +OMEP20ER PO
[2025-06-27 09:55] LABS: BASOPHILS ABSOLUTE AUTO 0.02 K/mm3 (0.00-0.23); BASOPHILS PERCENT AUTO 0 % (0-2); EOSINOPHILS ABSOLUTE AUTO 0.23 K/mm3 (0.00-0.68); EOSINOPHILS PERCENT AUTO 3 % (0-6); Hematocrit 38.7 % (33.0-51.0); Hemoglobin 12.6 g/dL (11.5-16.0); IMMATURE GRAN ABSOLUTE AUTO 0.01 K/mm3 (0.00-0.10); IMMATURE GRAN PERCENT AUTO 0 % (0-1); LYMPHOCYTES ABSOLUTE AUTO 0.96 K/mm3 (0.84-5.20); LYMPHOCYTES PERCENT AUTO 11 % (21-46); MONOCYTES ABSOLUTE AUTO 0.46 K/mm3 (0.16-1.47); MONOCYTES PERCENT AUTO 5 % (4-13); Mean Corpuscular HGB Conc 32.6 g/dL (31.5-36.5); Mean Corpuscular Volume 90 fL (80-100); NEUTROPHILS ABSOLUTE AUTO 6.82 K/mm3 (1.96-9.15); NEUTROPHILS PERCENT AUTO 80 % (41-73); NRBC ABSOLUTE 0.00 K/mm3 (0.00-0.02); NRBC Auto 0.0 /100 WBC (0.0-0.2); Platelet Count 150 K/mm3 (150-400); RDW Coefficient Variation 14.0 % (11.7-14.2); RDW Standard Deviation 46.4 fL (35.1-46.3)
[2025-06-27 10:19] LABS: Alanine Aminotransfer (ALT/SGP 23.0 U/L (12-78); Albumin, Blood 3.5 g/dL (3.4-5.0); Albumin/Globulin Ratio 0.8 (0.8-1.8); Anion Gap 6.0 mmol/L (3-11); Aspartate Aminotrans (AST/SGOT 12.0 U/L (12-37); Bilirubin, Total 0.4 mg/dL (0.1-1.0); Blood Urea Nitrogen 15.0 mg/dL (8-24); CO2, Blood 27.0 mmol/L (21-32); Calcium, Blood 8.9 mg/dL (8.5-10.1); Chloride, Blood 109.0 mmol/L (98-108); Creatinine, Blood 1.32 mg/dL (0.40-1.00); Globulin, Blood 4.6 g/dL (2.2-4.0); Glucose, Blood 138.0 mg/dL (70-99); Potassium, Blood 3.9 mmol/L (3.5-5.5); Sodium, Blood 138.0 mmol/L (136-145); Total Protein, Blood 8.1 g/dL (6.4-8.2)
[2025-06-27 10:30] LABS: CORONAVIRUS COVID-19 AG Positive (NEGATIVE)
[2025-06-27] MEDS ORDERED: ALBU90OI INH (10:43)
[2025-06-27] MEDS ORDERED: BENZ100A PO (10:43)
[2025-06-27 13:00] VITALS: BP 157/81
== END 2025-06-27 13:20 | disposition home or self-care (01) ==
LOC: ER 09:13
PROVIDERS: Emergency Medicine
DX: U07.1 COVID-19 (principal); I12.9 Hypertensive chronic kidney disease with stage 1 through stage 4 chronic kidney disease, or unspecified chronic kidney disease; N18.30 Chronic kidney disease, stage 3 unspecified; Z79.899 Other long term (current) drug therapy; Z79.01 Long term (current) use of anticoagulants
CPT/HCPCS: 71045; 80053; 85025; 87428-QW; 99285-25; A9270